=== PATIENT | female | born 1960 | race Caucasian/White ===

== ENCOUNTER → 2017-01-01 | Outpatient (CLI) | payer OTHER ==
--- NOTE | 2017-01-01 14:35 | DIAGNOSTIC IMAGING REPORT ---
NASAL BONES MIN 3 VIEWS CLINICAL HISTORY: NOSE PAIN S/P TRAUMA COMPARISON STUDY: No previous studies for comparison. FINDINGS: No acute fractures are visualized. There is no orbital emphysema. There are no air-fluid levels within the axillary sinuses. IMPRESSION: No fractures identified. Electronically signed by: Dameon Segura M.D. 01/01/2017 2:34 PM Dictated Date/Time: 01/01/2017 2:33 PM
--- NOTE | 2017-01-01 14:37 | DIAGNOSTIC IMAGING REPORT ---
PARANASAL SINUSES 4 VIEWS CLINICAL HISTORY: Facial injury. FINDINGS: 4 views of the paranasal sinuses are obtained. No prior studies are available for comparison at the time of dictation. The bony orbits are intact as imaged. The paranasal sinuses appear clear. No air-fluid levels are suspected. The mastoid air cells appear well-pneumatized. The visualized calvarium appears intact. IMPRESSION: There is no radiographic evidence of paranasal sinus disease. Electronically signed by: Darian Luna M.D. 01/01/2017 2:35 PM Dictated Date/Time: 01/01/2017 2:34 PM
== END | disposition home or self-care (01) ==
LOC: C.RAD1850 13:43
PROVIDERS: ATTEND Nurse Practitioner Adult Health
DX: J34.89 Other specified disorders of nose and nasal sinuses (principal)

== ENCOUNTER 2023-01-29 06:14 | Inpatient (IN) ==
[2023-01-29] MEDS ORDERED: SODIUM CHLORIDE 0.9% 1000ML 500 ML IV ONE (06:33)
[2023-01-29] MEDS ORDERED: dilTIAZem HCl 5 MG/ML 5 ML VIAL IV ONE (06:42)
[2023-01-29] MEDS ORDERED: dilTIAZem HCl 5 MG/ML 5 ML VIAL IV STA (06:42)
[2023-01-29] MEDS ORDERED: STAT IV Infusion **Titration per Protocol STA (06:42)
[2023-01-29] MEDS ORDERED: dilTIAZem HCL 125 MG in DEXTROSE 5% 100 ML IV SCH (06:45)
--- NOTE | 2023-01-29 06:56 | XRay Report ---
XR chest 1V portable HISTORY: 62 years-old Female Chest pain, nonspecific acute chest pain COMPARISON: 06/03/2014 TECHNIQUE: AP view of the chest FINDINGS: Cardiomediastinal and hilar silhouettes are within normal limits. No pneumothorax, pleural effusion, airspace consolidation or pulmonary edema. Bones appear grossly intact. IMPRESSION: No acute process. ACT 112: Negative or not required by law. The above report was generated using voice recognition software. It may contain grammatical, syntax o r spelling errors. Electronically signed by: Stefan Oliveira M.D. 01/29/2023 6:54 AM
--- NOTE | 2023-01-29 07:17 | Emergency Department Note ---
Impression & Plan Atrial fibrillation with rapid ventricular response, Precordial chest pain ED Provider Note NAME: AMNA HAMMER AGE: 62 SEX: F : 1960 ARRIVES VIA: Walk-In INFORMANT: [Patient] ED PROVIDER(S): [Darian Moreno MD] CHIEF COMPLAINT: Chest pain HISTORY OF PRESENT ILLNESS: The patient is a 62-year-old female who presents with about 6 hours of symptoms. The patient states that she began to feel pressure in her chest, she felt some pressure in her back, shoulders and she felt her upper arms were slightly numb. She was may be slightly short of breath. She felt her heart racing. There has been no nausea or vomiting, no fever, chills, cough or congestion. She has been in baseline health. In the past, she had an episode of a faster heart rate that really was never diagnosed as A-fib. She wore a monitor for a while but nothing was found. She is not on blood thinning agents, she is not on rate controlling medications PMHx/PSHx: See Below SOCIAL HISTORY: See Below. PHYSICAL EXAM: GENERAL: Patient is in no acute distress. HEENT: No acute trauma, normocephalic atraumatic, mucous membranes moist, no nasal congestion. NECK: No stridor, no adenopathy, no meningismus, trachea is midline. LUNGS: Clear to auscultation bilaterally, no wheeze, no rhonchi, breath sounds equal. HEART: Tachycardic and irregular, no murmurs. ABDOMEN: Soft, nontender, bowel sounds positive, no peritonitis. EXTREMITIES: No cyanosis or edema, full range of motion of all the joints without pain or difficulty, no signs for acute trauma. NEUROLOGIC: Oriented x 3, no acute motor or sensory deficits, no focal weakness. SKIN: No rash, no jaundice, no diaphoresis. DIFFERENTIAL DIAGNOSIS: A-fib or a flutter, cardiac ischemia, thyroid disorder, electrolyte imbalance, anemia, LA, viral infection, among others. EMERGENCY DEPARTMENT COURSE/PROCEDURES: Prior/Outside records reviewed: None. ECG per my interpretation: Indication was chest pain. The ECG shows a rapid A-fib with a rate of 136. There is no ST elevation, no PVCs. There is a poor R wave progression. QTc is 370. Continuous Cardiac Monitoring per my interpretation: An order was placed for continuous cardiac monitoring. The monitor shows a rate of 139 with rapid atrial fibrillation. Critical Care Note: I have personally spent 45 minutes of critical care time in the direct management of this patient. This includes bedside care, interpretation of diagnostic studies, and testing, discussion with consultants, patient, and family members, and other required patient management activities. This 45 minutes is in excess of all separately billable procedures. MEDICAL DECISION MAKING: There is no leukocytosis or concerning anemia. There is a normal platelet count. No renal failure or significant electrolyte abnormality. No concerning liver enzyme elevation. ECG shows rapid atrial fibrillation without obvious ischemia. Cardiac enzyme testing x1 is not consistent with acute cardiac injury. There is no evidence for pancreatitis. The patient appeared to be in a euthyroid state. COVID testing returned negative. Chest film per my review did not show mediastinal widening, pneumonia or pneumothorax. On exam, patient was in a rapid atrial fibrillation, she seemed to be resting comfortably on the stretcher. Patient was given a 500 cc saline bolus. She was given a bolus of IV diltiazem and placed on a diltiazem drip. With the above treatment, the patient's heart rate is now in the 80s to 90s. She remains in atrial fibrillation though. The patient is in need of a hospital stay. She will require further work-up for the new A-fib diagnosis. Hopefully, she will spontaneously convert to a sinus rhythm over the next day. I did speak with the patient and case management, the on-call hospitalist was consulted. DISPOSITION: Patient's presentation and findings warrant a hospital stay. Past Med/Surg History Medical History Bartholin's gland abscess S/p molar removal Surgical History History of appendectomy age 11 History of hand surgery Left 5th digit tendon laceration s/p repair History of tonsillectomy Family History (Updated 01/29/23 @ 08:31 by Estelle Whiting PA-C) Mother Cancer Father Heart disease Hypertension Social History Smoking Status: Never smoker Feels Safe at Home: Yes Allergies Allergies Allergy/AdvReac Type Severity Reaction Status Date / Time No Known Allergies Allergy Unverified 04/28/15 19:38 Home Meds Home Medications Medication Instructions Recorded Confirmed cyanocobalamin (B12)-cobamamide ana luisa sublingual 01/29/23 5,000 mcg-100 mcg sublingual lozenge (B12) lysine 500 mg tablet 500 mg PO DAILY 01/29/23 01/29/23 magnesium 250 mg tablet 250 mg PO DAILY 01/29/23 01/29/23 Results & Data (ED) Vital Signs Vital Signs - 24 hr 01/29/23 06:17 01/29/23 06:32 01/29/23 07:06 Temperature 37.5 C Temperature Source Temporal Artery Scan Pulse Rate 92 H 137 H Pulse Rate from SpO2 Sensor Respiratory Rate 18 Respiratory Effort / Characteristics Non-Labored Respiratory Depth Normal Blood Pressure 119/68 Blood Pressure Mean 85 Pulse Oximetry 97 Oxygen Delivery Method Room Air Room Air Sepsis Recent Fever Within 48 Hours No Sepsis New/Unexplained Change in Mental Status N/A Sepsis Action Taken by Nursing No Action Required 01/29/23 06:51 01/29/23 06:51 01/29/23 07:00 Temperature Temperature Source Pulse Rate 89 89 Pulse Rate from SpO2 Sensor 77 Respiratory Rate 21 21 Respiratory Effort / Characteristics Respiratory Depth Blood Pressure 104/63 Blood Pressure Mean 76 Pulse Oximetry 94 Oxygen Delivery Method Sepsis Recent Fever Within 48 Hours Sepsis New/Unexplained Change in Mental Status Sepsis Action Taken by Nursing 01/29/23 07:10 01/29/23 07:12 01/29/23 07:12 Temperature Temperature Source Pulse Rate 84 88 Pulse Rate from SpO2 Sensor 86 75 Respiratory Rate 21 18 Respiratory Effort / Characteristics Respiratory Depth Blood Pressure 122/52 L Blood Pressure Mean 75 Pulse Oximetry 94 94 Oxygen Delivery Method Sepsis Recent Fever Within 48 Hours Sepsis New/Unexplained Change in Mental Status Sepsis Action Taken by Nursing 01/29/23 07:20 01/29/23 07:30 01/29/23 07:30 Temperature Temperature Source Pulse Rate 100 H 94 H Pulse Rate from SpO2 Sensor 89 76 Respiratory Rate 21 18 Respiratory Effort / Characteristics Respiratory Depth Blood Pressure 120/69 Blood Pressure Mean 86 Pulse Oximetry 94 94 Oxygen Delivery Method Room Air Room Air Sepsis Recent Fever Within 48 Hours Sepsis New/Unexplained Change in Mental Status Sepsis Action Taken by Nursing 01/29/23 08:00 01/29/23 08:00 01/29/23 08:30 Temperature Temperature Source Pulse Rate 101 H Pulse Rate from SpO2 Sensor 79 Respiratory Rate 18 Respiratory Effort / Characteristics Respiratory Depth Blood Pressure 123/82 109/64 Blood Pressure Mean 95 79 Pulse Oximetry 95 Oxygen Delivery Method Room Air Sepsis Recent Fever Within 48 Hours Sepsis New/Unexplained Change in Mental Status Sepsis Action Taken by Nursing 01/29/23 08:30 01/29/23 09:00 01/29/23 09:00 Temperature Temperature Source Pulse Rate 88 98 H Pulse Rate from SpO2 Sensor 87 Respiratory Rate 21 20 Respiratory Effort / Characteristics Respiratory Depth Blood Pressure 105/70 Blood Pressure Mean 81 Pulse Oximetry 95 95 Oxygen Delivery Method Room Air Room Air Sepsis Recent Fever Within 48 Hours Sepsis New/Unexplained Change in Mental Status Sepsis Action Taken by Intermediate Medications Current Medication List: was personally reviewed by me Laboratory Data Attestation: I reviewed the patient's lab results. 01/29/23 06:37 01/29/23 Unknown Lab Results 01/29/23 01/29/23 01/29/23 Range/Units 06:37 07:17 Unknown WBC 9.41 (4.8-10.8) K/ul RBC 5.28 (4.20-5.40) M/uL Hgb 14.7 (12.0-16.0) g/dl Hct 45.2 (37.0-47.0) % MCV 85.6 (80.0-100.0) fL MCH 27.8 (25.0-34.0) pg MCHC 32.5 (32.0-36.0) g/dL RDW Std Deviation 43.4 (36.4-46.3) fL RDW Coeff of Reuben 13.8 (11.5-14.5) % Plt Count 304 (130-400) K/uL MPV 11.8 (9.4-12.4) fL Immature Gran % (Auto) 0.3 % Neut % (Auto) 65.8 % Lymph % (Auto) 23.7 % [place]barger % (Auto) 9.6 % Eos % (Auto) 0.4 % Baso % (Auto) 0.2 % Neut # (Auto) 6.19 (1.40-6.50) K/uL Lymph # (Auto) 2.23 (1.2-3.4) K/uL [place]barger # (Auto) 0.90 H (0.11-0.59) K/uL Eos # (Auto) 0.04 (0-0.50) K/uL Baso # (Auto) 0.02 (0-0.2) K/uL Immature Gran # (Auto) 0.03 (0.01-0.20) K/uL Sodium 141 (136-145) mmol/L Potassium 4.3 (3.5-5.1) mmol/L Chloride 109 H (98-107) mmol/L Carbon Dioxide 26 (21-32) mmol/L Anion Gap 6 (3-11) BUN 17 (6-23) mg/dl Creatinine 0.70 (0.6-1.2) mg/dl Est Cr Clr Drug Dosing 78.9 ml/min Est GFR ( Amer) 108.4 ml/min Est GFR (Non-Af Amer) 93.5 ml/min BUN/Creatinine Ratio 24.3 H (10-20) Glucose 126 H (70-99(Fasting)) mg/dl Calcium 9.0 (8.6-10.3) mg/dl Magnesium 2.2 (1.7-2.4) mg/dl Total Bilirubin 0.3 (0.2-1.0) mg/dl AST 35 (13-39) U/L ALT 46 (7-52) U/L Alkaline Phosphatase 99 (34-104) U/L Troponin I High Sens 9.4 (0-14) pg/ml Total Protein 7.4 (6.0-8.3) gm/dl Albumin 4.3 (3.4-5.0) gm/dl Globulin 3.1 (2.5-4.0) gm/dl Albumin/Globulin Ratio 1.4 (0.9-2) Lipase 23 (11-82) U/L TSH (0.300-4.500) uIu/ml SARS-CoV-2, RNA, NAAT NEGATIVE (NEGATIVE) 01/29/23 Range/Units Unknown WBC (4.8-10.8) K/ul RBC (4.20-5.40) M/uL Hgb (12.0-16.0) g/dl Hct (37.0-47.0) % MCV (80.0-100.0) fL MCH (25.0-34.0) pg MCHC (32.0-36.0) g/dL RDW Std Deviation (36.4-46.3) fL RDW Coeff of Reuben (11.5-14.5) % Plt Count (130-400) K/uL MPV (9.4-12.4) fL Immature Gran % (Auto) % Neut % (Auto) % Lymph % (Auto) % [place]barger % (Auto) % Eos % (Auto) % Baso % (Auto) % Neut # (Auto) (1.40-6.50) K/uL Lymph # (Auto) (1.2-3.4) K/uL Wilbarger # (Auto) (0.11-0.59) K/uL Eos # (Auto) (0-0.50) K/uL Baso # (Auto) (0-0.2) K/uL Immature Gran # (Auto) (0.01-0.20) K/uL Sodium (136-145) mmol/L Potassium (3.5-5.1) mmol/L Chloride (98-107) mmol/L Carbon Dioxide (21-32) mmol/L Anion Gap (3-11) BUN (6-23) mg/dl Creatinine (0.6-1.2) mg/dl Est Cr Clr Drug Dosing ml/min Est GFR ( Amer) ml/min Est GFR (Non-Af Amer) ml/min BUN/Creatinine Ratio (10-20) Glucose (70-99(Fasting)) mg/dl Calcium (8.6-10.3) mg/dl Magnesium (1.7-2.4) mg/dl Total Bilirubin (0.2-1.0) mg/dl AST (13-39) U/L ALT (7-52) U/L Alkaline Phosphatase (34-104) U/L Troponin I High Sens (0-14) pg/ml Total Protein (6.0-8.3) gm/dl Albumin (3.4-5.0) gm/dl Globulin (2.5-4.0) gm/dl Albumin/Globulin Ratio (0.9-2) Lipase (11-82) U/L TSH 3.520 (0.300-4.500) uIu/ml SARS-CoV-2, RNA, NAAT (NEGATIVE) Administered Medications Diltiazem HCl 125 mg/ Dextrose 125 mls @ 5 mls/hr IV .Q24H [facility]; Protocol Stop: 02/28/23 06:44 Last Admin: 01/29/23 07:05 Dose: 5 mg/hr, 5 mls/hr Documented By: FRANCISCA Co-signed By: ASHLEIGH Discontinued Medications Diltiazem HCl (Diltiazem Hcl 5 Mg/Ml 5 Ml Vial) Confirm Administered Dose 25 mg IV .STK-MED ONE Stop: 01/29/23 06:43 Last Increment: 01/29/23 06:43 Dose: 15 mg Documented By: DEDE Co-signed By: DARIO Diltiazem HCl (Diltiazem Hcl 5 Mg/Ml 5 Ml Vial) 15 mg IV NOW STA Stop: 01/29/23 06:43 Last Admin: 01/29/23 06:50 Dose: Not Given Documented By: DEDE Sodium Chloride (Nss 1000ml) 500 mls @ 999 mls/hr IV .Q31M ONE Stop: 01/29/23 07:03 Last Infusion: 01/29/23 07:21 Dose: 0 mls/hr Documented By: Admin: 01/29/23 06:50 Dose: 999 mls/hr Documented By: DEDE Miscellaneous (Stat Iv Infusion Titration Per Protocol) 1 each N/A NOW STA Stop: 01/29/23 06:43 Last Admin: 01/29/23 07:22 Dose: Not Given Documented By: FRANCISCA Imaging Data Radiologist's Impression: Chest X-Ray 01/29/23 06:16 XR chest 1V portable HISTORY: 62 years-old Female Chest pain, nonspecific acute chest pain COMPARISON: 06/03/2014 TECHNIQUE: AP view of the chest FINDINGS: Cardiomediastinal and hilar silhouettes are within normal limits. No pneumothorax, pleural effusion, airspace consolidation or pulmonary edema. Bones appear grossly intact. IMPRESSION: No acute process. ACT 112: Negative or not required by law. The above report was generated using voice recognition software. It may contain grammatical, syntax or spelling errors. Electronically signed by: Stefan Oliveira M.D. 01/29/2023 6:54 AM Discharge Plan Visit Data Chief Complaint: Chest Pain Stated Complaint: CHEST PAIN,PAIN IN BACK,SHOULDER,RACING HEART ED Provider: Darian Moreno Discharge Problem: Atrial fibrillation with rapid ventricular response, Precordial chest pain Patient Disposition: Admitted As Inpatient Condition: Good Forms Stand Alone Forms: My [facility] [place] [employer] Prescriptions Prescriptions: No Action magnesium 250 mg Tablet 250 mg PO DAILY lysine 500 mg Tablet 500 mg PO DAILY B12 5,000-100 mcg Lozenge SUBLINGUAL Referrals Referrals: PCP,NO [Primary Care Provider] -
[2023-01-29 07:19] LABS: Basophils # (auto) 0.02 K/uL (0-0.2); Basophils % (auto) 0.2 %; Eosinophils # (auto) 0.04 K/uL (0-0.50); Eosinophils % (auto) 0.4 %; Hematocrit (blood only) 45.2 % (37.0-47.0); Hemoglobin 14.7 g/dl (12.0-16.0); Immature Granulocytes # (auto) 0.03 K/uL (0.01-0.20); Immature Granulocytes % (auto) 0.3 %; Lymphocytes # (auto) 2.23 K/uL (1.2-3.4); Lymphocytes % (auto) 23.7 %; Mean Corpuscular Hemoglobin 27.8 pg (25.0-34.0); Mean Corpuscular Hgb Conc 32.5 g/dL (32.0-36.0); Mean Corpuscular Volume 85.6 fL (80.0-100.0); Mean Platelet Volume 11.8 fL (9.4-12.4); Monocytes % (auto) 9.6 %; Neutrophils # (auto) 6.19 K/uL (1.40-6.50); Neutrophils % (auto) 65.8 %; Platelet Count 304 K/uL (130-400); RDW Coefficient of Variation 13.8 % (11.5-14.5); RDW Standard Deviation 43.4 fL (36.4-46.3); Red Blood Count 5.28 M/uL (4.20-5.40); White Blood Count 9.41 K/ul (4.8-10.8)
[2023-01-29 07:34] LABS: Albumin Globulin Ratio 1.4 (0.9-2); Albumin Level 4.3 gm/dl (3.4-5.0); BUN Creatinine Ratio 24.3 (10-20); Bilirubin,Total 0.3 mg/dl (0.2-1.0); Creatinine Clr Calc Pharmacy 78.9 ml/min; Est GFR (African American) 108.4 ml/min; Est GFR (Non-African American) 93.5 ml/min; Globulin 3.1 gm/dl (2.5-4.0); Magnesium 2.2 mg/dl (1.7-2.4); Potassium 4.3 mmol/L (3.5-5.1); Total Protein 7.4 gm/dl (6.0-8.3)
[2023-01-29 07:39] LABS: Troponin I High Sensitivity 9.4 pg/ml (0-14)
--- NOTE | 2023-01-29 08:37 | History & Physical Report ---
Date of Service January 29, 2023 Assessment & Plan (1) New onset a-fib: (2) Palpitations: Plan: - Admit to tele - Trend cardiac biomarkers, initial set was negative - EKG reviewed as above showing Afib with RVR, suspect this has been ongoing or some time but that this was an episode which did not spontaneously convert. 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 as per her HPI - [id number]= 1, patient will not need anticoagulation unless condition changes or cards recommends such - TSH normal, denies alcohol use - Check lipids and A1C with am labs - Strong family association with hx of afib DVT ppx: - teds, scds, heparin subq CODE: Full code Dispo: From home, likely to remain in the hospital x 1-2 days A total of 65 minutes were spent with greater than 50% of that time face to face with the patient, personally reviewing all current laboratories, imaging studies, past medication reconciliation, outpatient chart review, and discussion with specialists to collaborate care for the patient with attending. Please see attending documentation for corrections and/or additions. History of Present Illness Chief Complaint: Chest pressure, palpitations Primary Care Provider: NO PCP This is a 62-year-old female with PMHx of seasonal allergies, ocular migraine who presents to the hospital with acute onset of chest pressure, bilateral arm pressure, palpitations and slight sensation of shortness of breath which woke her at 12:30 AM. Pt notes this pounding in her chest sensation did not away after a few hours. She reports having fleeting moments of irregular heart beat about 10 years ago where she underwent evaluation with a Holter monitor but does not recall anything came out of it. She has of other episodes where similar sensation has lasted a few moments and then goes away. She notes she was drinking plenty of water yesterday and throughout the night, she last ate around 7:30 pm yesterday. As far as medications go, she is only on 3 supplements: Magnesium, lysine and B12 which she takes whenever she remembers them. She reports a strong family history of atrial fibrillation, reporting that her father and 5 out of 6 siblings now have been diagnosed with afib and some have undergone ablations for such, and one of her brothers now has a pacemaker. All of her mothers brothers were diagnosed with afib. 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 Denies alcohol use or smoking. She lives at home with her , Nilo, who is present at bedside. Allergies Allergy/AdvReac Type Severity Reaction Status Date / Time No Known Allergies Allergy Unverified 04/28/15 19:38 Home Medications Medication Instructions Recorded Confirmed Type cyanocobalamin (vitamin B-12) 1 tab PO DAILY 01/29/23 01/29/23 History lysine 500 mg tablet 500 mg PO DAILY 01/29/23 01/29/23 History magnesium 250 mg tablet 250 mg PO DAILY 01/29/23 01/29/23 History Past Med/Surg History Medical History Bartholin's gland abscess S/p molar removal Surgical History History of appendectomy age 11 History of hand surgery Left 5th digit tendon laceration s/p repair History of tonsillectomy Family History (Updated 01/29/23 @ 08:31 by Estelle Whiting PA-C) Mother Cancer Father Heart disease Hypertension Social History Smoking Status: Never smoker Hx Alcohol Use: No Hx Substance Use: No Preferred Language: Nepali Freight Clerk Required: No Beliefs That Will Affect Care: None Current Living Situation: Spouse Other Information That Helps Us Care for You: No Feels Safe at Home: Yes Safety Concerns: Feels Safe At This Time Assistive Devices: Glasses Review of Systems Review of Systems: Constitutional: No fever, sweats or chills Eyes: No diplopia, no worsening or blurred vision ENT: normal hearing, no trouble swallowing Respiratory: No cough, sputum, dyspnea at rest or on exertion Cardiovascular: As per HPI Abdomen: No pain, nausea, vomiting, diarrhea or constipation Musculoskeletal: No joint pain, calf pain, swelling Neurologic: No weakness, numbness/tingling, or balance problems Psychiatric: No anxiety or depression Skin: No rash or itch Physical Exam Physical Exam: General: awake, alert, no apparent distress Head: Normocephalic, atraumatic ENT: PERRL, EOMI, no pharyngeal exudate, mucous membranes moist Chest: Clear to auscultation, on room air, no adventitious breath sounds Cardiac: Irregularly irregular, HR peaks into the 150s with sitting up in bed, no JVD, normal peripheral pulses, good capillary refill Abdominal: NABS x 4 quadrants, soft, nondistended, nontender to palpation, no rebound or guarding Extremities: Normal inspection, no peripheral edema or erythema, calfs nontender to palpation Psych: Normal mood and affect Neuro: AAO x 3, strength intact bilaterally and rated 5/5, no motor deficits, speech is clear, no peripheral sensory deficits Results & Data Results & Data Vital Signs (Past 12 Hours) Vital Signs Temp Pulse Resp BP Pulse Ox O2 Del Method 01/29/23 08:00 101 H 18 95 Room Air 01/29/23 08:00 123/82 01/29/23 07:30 94 H 18 94 Room Air 01/29/23 07:30 120/69 01/29/23 07:20 100 H 21 94 Room Air 01/29/23 07:12 122/52 L 01/29/23 07:12 88 18 94 01/29/23 07:10 84 21 94 01/29/23 07:00 89 21 94 01/29/23 06:51 89 21 01/29/23 06:51 104/63 01/29/23 07:06 Room Air 01/29/23 06:32 137 H 01/29/23 06:17 37.5 C 92 H 18 119/68 97 Room Air Laboratory Results 01/29/23 01/29/23 01/29/23 Unknown Unknown 07:17 WBC RBC Hgb Hct MCV MCH MCHC RDW Std Deviation RDW Coeff of Reuben Plt Count MPV Immature Gran % (Auto) Neut % (Auto) Lymph % (Auto) Jewell % (Auto) Eos % (Auto) Baso % (Auto) Neut # (Auto) Lymph # (Auto) Jewell # (Auto) Eos # (Auto) Baso # (Auto) Immature Gran # (Auto) Sodium 141 Potassium 4.3 Chloride 109 H Carbon Dioxide 26 Anion Gap 6 BUN 17 Creatinine 0.70 Est Cr Clr Drug Dosing 78.9 Est GFR ( Amer) 108.4 Est GFR (Non-Af Amer) 93.5 BUN/Creatinine Ratio 24.3 H Glucose 126 H Calcium 9.0 Magnesium 2.2 Total Bilirubin 0.3 AST 35 ALT 46 Alkaline Phosphatase 99 Troponin I High Sens 9.4 Total Protein 7.4 Albumin 4.3 Globulin 3.1 Albumin/Globulin Ratio 1.4 Lipase 23 TSH 3.520 SARS-CoV-2, RNA, NAAT NEGATIVE 01/29/23 06:37 WBC 9.41 RBC 5.28 Hgb 14.7 Hct 45.2 MCV 85.6 MCH 27.8 MCHC 32.5 RDW Std Deviation 43.4 RDW Coeff of Reuben 13.8 Plt Count 304 MPV 11.8 Immature Gran % (Auto) 0.3 Neut % (Auto) 65.8 Lymph % (Auto) 23.7 Jewell % (Auto) 9.6 Eos % (Auto) 0.4 Baso % (Auto) 0.2 Neut # (Auto) 6.19 Lymph # (Auto) 2.23 Jewell # (Auto) 0.90 H Eos # (Auto) 0.04 Baso # (Auto) 0.02 Immature Gran # (Auto) 0.03 Sodium Potassium Chloride Carbon Dioxide Anion Gap BUN Creatinine Est Cr Clr Drug Dosing Est GFR ( Amer) Est GFR (Non-Af Amer) BUN/Creatinine Ratio Glucose Calcium Magnesium Total Bilirubin AST ALT Alkaline Phosphatase Troponin I High Sens Total Protein Albumin Globulin Albumin/Globulin Ratio Lipase TSH SARS-CoV-2, RNA, NAAT Diagnostic Findings Chest X-Ray 01/29/23 06:16 XR chest 1V portable HISTORY: 62 years-old Female Chest pain, nonspecific acute chest pain COMPARISON: 06/03/2014 TECHNIQUE: AP view of the chest FINDINGS: Cardiomediastinal and hilar silhouettes are within normal limits. No pneumothorax, pleural effusion, airspace consolidation or pulmonary edema. Bones appear grossly intact. IMPRESSION: No acute process. ACT 112: Negative or not required by law. The above report was generated using voice recognition software. It may contain grammatical, syntax or spelling errors. Electronically signed by: Stefan Oliveira M.D. 01/29/2023 6:54 AM ECG Additional Comments: Reviewed showing atrial fib with RVR with heart rate in the 130s on review of EKG at 06 27 today. Previously EKG in NSR. Code Status & VTE Plan Code Status Full code-discussed with the patient and her at bedside Supervising Physician Co-Signing Physician Notes Patient seen and examined independently. Discussed with above provider. 62-year-old female with no significant past medical history presents to the hospital with palpitation and chest discomfort since last night. On presentation, she was found to have A-fib with RVR. In the ED, patient was started on Cardizem bolus and Cardizem drip. Her ventricular rate is well controlled on Cardizem drip at 10 mg/h. TSH WNL. No recent alcohol use. Echocardiogram ordered. Admit to telemetry. [id number]= 1; no anticoagulation for now. Appreciate cardiology input.
[2023-01-29] MEDS ORDERED: ONDANSETRON INJ 2 MG/ML 2 ML VIAL IV PRN (12:11)
[2023-01-29] MEDS ORDERED: ACETAMINOPHEN 325 MG TAB PO PRN (12:11)
--- NOTE | 2023-01-29 14:49 | Electrocardiogram Report ---
Test Reason : Blood Pressure : / mmHG Vent. Rate : 136 BPM Atrial Rate : 182 BPM P-R Int : 000 ms QRS Dur : 066 ms QT Int : 246 ms P-R-T Axes : 000 012 027 degrees QTc Int : 370 ms Atrial fibrillation with rapid ventricular response Abnormal ECG When compared with ECG of 27-AUG-2018 10:33, Atrial fibrillation has replaced Sinus rhythm Vent. rate has increased BY 68 BPM Confirmed by Joshua Ballesteros ([id number]) on 01/29/2023 2:49:26 PM Referred By: REFERRED SELF Confirmed By:Joshua Ballesteros
[2023-01-29] MEDS ORDERED: Heparin IV Adult Wt-Based Standard WITH Bolus Protocol IV SCH (15:39)
--- NOTE | 2023-01-29 15:44 | Cardiology Consultation ---
Date of Consultation January 29, 2023 Assessment & Plan (1) Atrial fibrillation with rapid ventricular response: (2) Precordial chest pain: Plan I explained the pathophysiology along with treatment options with the patient and her at the bedside They are counseled that I believe the most prudent course of action at this time would be to anticoagulate with weight-based IV heparin Ultimately, she will need Eliquis upon discharge For further rate control I will start her on the metoprolol tartrate 12.5 mg p.o. every 6 hours and her diltiazem drip can be titrated to off. Her symptoms will then be reevaluated in the a.m. and decision on rate versus rhythm control can be made at that time. Both the patient and her state that they understand and agree with the above plan History of Present Illness Reason for Consultation: Atrial fibrillation with rapid ventricular response Requesting Physician: [facility] hospitalist group Attending Physician: Kleber Hermosillo MD History of Present Illness It was my pleasure to see the patient in cardiac consultation today January 29, 2023. She is a very pleasant 62-year-old woman without significant past medical history. She presented to [facility] on 01/29/2023 with complaints of palpitations and chest discomfort. She states that she was in her normal state of health when she went to bed last evening but abruptly awoke at 12:30 AM with a sensation of her heart racing. This was also associated with a chest heaviness that radiated across her precordium up into her bilateral shoulders and down both arms. She was also short of breath at this time. Upon arrival emergency department she was found to be in atrial fibrillation with rapid ventricular response. She was started on a Cardizem drip but no anticoagulation? Currently she states that she feels better but still feels a little off and not quite back to her baseline. Upon further questioning she states that she had previous episodes of palpitations in the past but none that have lasted as long as this nor has she ever had associated chest discomfort with it before. Allergies Allergy/AdvReac Type Severity Reaction Status Date / Time No Known Allergies Allergy Unverified 04/28/15 19:38 Home Medications Medication Instructions Recorded Confirmed Type cyanocobalamin (vitamin B-12) 1 tab PO DAILY 01/29/23 01/29/23 History lysine 500 mg tablet 500 mg PO DAILY 01/29/23 01/29/23 History magnesium 250 mg tablet 250 mg PO DAILY 01/29/23 01/29/23 History Patient History Medical History Bartholin's gland abscess S/p molar removal Surgical History History of appendectomy age 11 History of hand surgery Left 5th digit tendon laceration s/p repair History of tonsillectomy Family History Mother Cancer Father Heart disease Hypertension Social History Smoking Status: Never smoker Hx Alcohol Use: No Hx Substance Use: No Preferred Language: Luxembourgish Hearing Aid Assistant Required: No Beliefs That Will Affect Care: None Current Living Situation: Spouse Other Information That Helps Us Care for You: No Feels Safe at Home: Yes Safety Concerns: Feels Safe At This Time Assistive Devices: Glasses Review of Systems Review of Systems: All systems reviewed & are unremarkable except as noted in HPI & below Physical Exam Physical Exam: General: Awake, alert and oriented x 3. No acute distress. HEENT: Normocephalic, atraumatic. Pupils equal, round and reactive to light and accommodation. Extraocular muscles are intact. Anicteric sclera. Moist mucous membranes. Neck: No JVD. No bruit. Cardiovascular: irregularly irregular, unable to appreciate murmur, rub or gallop. Pulmonary: Clear to auscultation bilaterally. No rales, rhonchi, or wheezing. Abdomen: Bowel sounds x 4, soft. No rebound, guarding or tenderness. No organomegaly. Extremities: No clubbing, cyanosis or edema. +2 pedal pulses bilaterally. Skin: Warm and dry. Results & Data Vital Signs (Past 12 Hours) Vital Signs Temp Pulse Pulse Resp BP BP Pulse Ox 01/29/23 13:59 01/29/23 13:58 84 01/29/23 12:13 36.8 C 79 18 96/65 L 97 01/29/23 11:51 01/29/23 11:30 80 23 94 01/29/23 11:30 110/73 01/29/23 11:00 83 19 95 01/29/23 11:00 103/64 01/29/23 10:30 81 20 94 01/29/23 10:30 134/60 01/29/23 10:00 96 H 18 01/29/23 10:00 107/66 01/29/23 09:30 88 18 95 01/29/23 09:30 109/68 01/29/23 09:00 98 H 20 95 01/29/23 09:00 105/70 01/29/23 08:30 88 21 95 01/29/23 08:30 109/64 01/29/23 08:00 101 H 18 95 01/29/23 08:00 123/82 01/29/23 07:30 94 H 18 94 01/29/23 07:30 120/69 01/29/23 07:20 100 H 21 94 01/29/23 07:12 122/52 L 01/29/23 07:12 88 18 94 01/29/23 07:10 84 21 94 01/29/23 07:00 89 21 94 01/29/23 06:51 89 21 01/29/23 06:51 104/63 01/29/23 07:06 01/29/23 06:32 137 H 01/29/23 06:17 37.5 C 92 H 18 119/68 97 O2 Del Method 01/29/23 13:59 Room Air 01/29/23 13:58 01/29/23 12:13 Room Air 01/29/23 11:51 Room Air 01/29/23 11:30 Room Air 01/29/23 11:30 01/29/23 11:00 Room Air 01/29/23 11:00 01/29/23 10:30 Room Air 01/29/23 10:30 01/29/23 10:00 01/29/23 10:00 01/29/23 09:30 Room Air 01/29/23 09:30 01/29/23 09:00 Room Air 01/29/23 09:00 01/29/23 08:30 Room Air 01/29/23 08:30 01/29/23 08:00 Room Air 01/29/23 08:00 01/29/23 07:30 Room Air 01/29/23 07:30 01/29/23 07:20 Room Air 01/29/23 07:12 01/29/23 07:12 01/29/23 07:10 01/29/23 07:00 01/29/23 06:51 01/29/23 06:51 01/29/23 07:06 Room Air 01/29/23 06:32 01/29/23 06:17 Room Air
[2023-01-29] MEDS: Heparin Adult STANDARD Wt-Based Dextrose 5% 25,000 units/500 mL IV SCH (16:25)
[2023-01-29] MEDS ORDERED: HEPARIN IV BOLUS 5,000 UNITS in SYRINGE 0 ML IV ONE (16:30)
[2023-01-29 17:01] LABS: Basophils # (auto) 0.02 K/uL (0-0.2); Basophils % (auto) 0.3 %; Eosinophils # (auto) 0.04 K/uL (0-0.50); Eosinophils % (auto) 0.5 %; Hematocrit (blood only) 41.6 % (37.0-47.0); Hemoglobin 13.6 g/dl (12.0-16.0); Immature Granulocytes # (auto) 0.02 K/uL (0.01-0.20); Immature Granulocytes % (auto) 0.3 %; Lymphocytes # (auto) 2.03 K/uL (1.2-3.4); Lymphocytes % (auto) 25.7 %; Mean Corpuscular Hemoglobin 28.2 pg (25.0-34.0); Mean Corpuscular Hgb Conc 32.7 g/dL (32.0-36.0); Mean Corpuscular Volume 86.3 fL (80.0-100.0); Mean Platelet Volume 11.7 fL (9.4-12.4); Monocytes # (auto) 0.79 K/uL (0.11-0.59); Neutrophils % (auto) 63.2 %; Platelet Count 276 K/uL (130-400); RDW Coefficient of Variation 13.8 % (11.5-14.5); RDW Standard Deviation 43.8 fL (36.4-46.3); Red Blood Count 4.82 M/uL (4.20-5.40)
[2023-01-29 17:15] LABS: Partial Thromboplastin Time 27.6 Seconds (21.0-31.0); Prothrombin Time 10.4 Seconds (9.0-12.0)
[2023-01-29] MEDS ORDERED: HEPARIN SOD 5,000 UNIT/0.5 ML VIAL SQ SCH (21:00)
[2023-01-29] MEDS: METOPROLOL TARTRATE 25 MG TAB PO SCH (21:05)
[2023-01-30 00:08] LABS: Partial Thromboplastin Ratio 1.7
[2023-01-30 00:12] LABS: Partial Thromboplastin Time 47.8 Seconds (21.0-31.0)
[2023-01-30] MEDS: METOPROLOL TARTRATE 25 MG TAB PO SCH ×3 (01:56→20:24)
[2023-01-30 06:32] LABS: Hematocrit (blood only) 43.3 % (37.0-47.0); Hemoglobin 14.2 g/dl (12.0-16.0); Mean Corpuscular Hemoglobin 28.2 pg (25.0-34.0); Mean Corpuscular Hgb Conc 32.8 g/dL (32.0-36.0); Mean Corpuscular Volume 85.9 fL (80.0-100.0); Platelet Count 246 K/uL (130-400); RDW Coefficient of Variation 13.7 % (11.5-14.5); RDW Standard Deviation 42.6 fL (36.4-46.3); Red Blood Count 5.04 M/uL (4.20-5.40); White Blood Count 7.43 K/ul (4.8-10.8)
[2023-01-30 06:55] LABS: BUN Creatinine Ratio 21.3 (10-20); Calcium 8.8 mg/dl (8.6-10.3); Est GFR (African American) 99.7 ml/min; Magnesium 2.1 mg/dl (1.7-2.4); Potassium 4.2 mmol/L (3.5-5.1)
[2023-01-30 07:53] LABS: Partial Thromboplastin Ratio 1.7
[2023-01-30 07:55] LABS: Partial Thromboplastin Time 47.7 Seconds (21.0-31.0)
[2023-01-30] MEDS ORDERED: METOPROLOL TARTRATE 1 MG/ML VIAL IV STA (08:55)
[2023-01-30] MEDS ORDERED: METOPROLOL TARTRATE 1 MG/ML VIAL IV ONE (08:56)
[2023-01-30] MEDS ORDERED: STAT IV Infusion **Titration per Protocol STA (09:42)
[2023-01-30] MEDS ORDERED: dilTIAZem HCl 5 MG/ML 5 ML VIAL IV STA (09:42)
--- NOTE | 2023-01-30 09:49 | Cardiology Progress Note ---
Date of Service January 30, 2023 Assessment & Plan (1) Atrial fibrillation with rapid ventricular response: (2) Precordial chest pain: Plan The diltiazem drip needs to be restarted for heart rate control. I reviewed the telemetry and she never converted to sinus rhythm so I am uncertain as to why it was stopped. I have increased her metoprolol to 25 mg twice daily. Would continue the IV heparin for now. Admission and Anticipated Discharge Date Admission Date: January 29, 2023 Subjective The patient was admitted with atrial fibrillation and RVR. She was on a diltiazem drip and for an uncertain reason it was discontinued last night and the patient has high heart rates again this morning. No chest pain or shortness of breath. Feels a little lightheaded. Review of Systems Review of Systems: Review of Systems: See HPI for pertinent positives. All other 10 point review of systems are negative. Physical Exam Physical Exam: General: no acute distress and stated age Head: normocephalic, no masses, lesions, tenderness or abnormalities Eyes: conjunctiva are pink and non-injected, sclera clear Neck: supple, no adenopathy, no bruits, normal jugular venous pulse, no hepatojugular reflux Chest: normal shape and normal respiratory effort Lungs: clear to auscultation and percussion Cardiac Exam: - irregular rate & rhythm, no murmurs gallops or rubs - normal S1, normal S2 Pulses: 2(+) throughout Abdomen: abdomen soft, non-tender, no abnormal masses and no hepatosplenomegaly Musculoskeletal: no gait disturbance, no joint inflammation, no deforming arthritis Extremities: no edema and no cyanosis Neuro: grossly normal exam Results & Data Vital Signs (Past 12 Hours) Vital Signs Temp Pulse Pulse Resp BP BP Pulse Ox 01/30/23 08:58 147 H 140/65 01/30/23 08:55 147 H 140/65 01/30/23 08:28 36.8 C 76 16 114/83 96 01/29/23 22:03 93 H 01/30/23 03:49 36.5 C 70 16 97/63 L 97 01/29/23 23:19 37.0 C 70 18 105/69 93 O2 Del Method 01/30/23 08:58 01/30/23 08:55 01/30/23 08:28 Room Air 01/29/23 22:03 01/30/23 03:49 Room Air 01/29/23 23:19 Room Air Laboratory Results Laboratory Results - last 24 hr 01/29/23 01/29/23 01/29/23 09:27 16:23 16:23 WBC 7.90 RBC 4.82 Hgb 13.6 Hct 41.6 MCV 86.3 MCH 28.2 MCHC 32.7 RDW Std Deviation 43.8 RDW Coeff of Reuben 13.8 Plt Count 276 MPV 11.7 Immature Gran % (Auto) 0.3 Neut % (Auto) 63.2 Lymph % (Auto) 25.7 [place] % (Auto) 10.0 Eos % (Auto) 0.5 Baso % (Auto) 0.3 Neut # (Auto) 5.00 Lymph # (Auto) 2.03 [place] # (Auto) 0.79 H Eos # (Auto) 0.04 Baso # (Auto) 0.02 Immature Gran # (Auto) 0.02 PT 10.4 INR 1.0 APTT 27.6 PTT Ratio 1.0 Sodium Potassium Chloride Carbon Dioxide Anion Gap BUN Creatinine Est Cr Clr Drug Dosing Est GFR ( Amer) Est GFR (Non-Af Amer) BUN/Creatinine Ratio Glucose Estimat Average Glucose Hemoglobin A1c Calcium Phosphorus Magnesium Troponin I High Sens 13.3 Triglycerides Cholesterol LDL Cholesterol, Calc VLDL Cholesterol, Calc HDL Cholesterol Cholesterol/HDL Ratio 01/29/23 01/30/23 01/30/23 23:07 05:43 05:43 WBC 7.43 RBC 5.04 Hgb 14.2 Hct 43.3 MCV 85.9 MCH 28.2 MCHC 32.8 RDW Std Deviation 42.6 RDW Coeff of Reuben 13.7 Plt Count 246 MPV 12.0 Immature Gran % (Auto) Neut % (Auto) Lymph % (Auto) [place] % (Auto) Eos % (Auto) Baso % (Auto) Neut # (Auto) Lymph # (Auto) [place] # (Auto) Eos # (Auto) Baso # (Auto) Immature Gran # (Auto) PT INR APTT 47.8 H* PTT Ratio 1.7 Sodium 142 Potassium 4.2 Chloride 110 H Carbon Dioxide 26 Anion Gap 6 BUN 16 Creatinine 0.75 Est Cr Clr Drug Dosing 73.0 Est GFR ( Amer) 99.7 Est GFR (Non-Af Amer) 86.0 BUN/Creatinine Ratio 21.3 H Glucose 111 H Estimat Average Glucose Hemoglobin A1c Calcium 8.8 Phosphorus 4.0 Magnesium 2.1 Troponin I High Sens Triglycerides 100 Cholesterol 165 LDL Cholesterol, Calc 104 VLDL Cholesterol, Calc 20 HDL Cholesterol 41 Cholesterol/HDL Ratio 4.0 01/30/23 01/30/23 05:43 05:43 WBC RBC Hgb Hct MCV MCH MCHC RDW Std Deviation RDW Coeff of Reuben Plt Count MPV Immature Gran % (Auto) Neut % (Auto) Lymph % (Auto) [place] % (Auto) Eos % (Auto) Baso % (Auto) Neut # (Auto) Lymph # (Auto) [place] # (Auto) Eos # (Auto) Baso # (Auto) Immature Gran # (Auto) PT INR APTT 47.7 H* PTT Ratio 1.7 Sodium Potassium Chloride Carbon Dioxide Anion Gap BUN Creatinine Est Cr Clr Drug Dosing Est GFR ( Amer) Est GFR (Non-Af Amer) BUN/Creatinine Ratio Glucose Estimat Average Glucose Pending Hemoglobin A1c Pending Calcium Phosphorus Magnesium Troponin I High Sens Triglycerides Cholesterol LDL Cholesterol, Calc VLDL Cholesterol, Calc HDL Cholesterol Cholesterol/HDL Ratio Medications Administered Current Inpatient Medications Acetaminophen (Acetaminophen 325 Mg Tab) 650 mg PO Q4H PRN PRN Reason: Moderate Pain (Scale 4, 5, 6) Stop: 02/28/23 12:10 Heparin Sodium/Dextrose (Heparin Sodium/Dextrose) 25,000 units in 500 mls @ 21 mls/hr IV .[id number] [facility]; Protocol Stop: 02/28/23 15:59 Last Titration: 01/30/23 08:29 Dose: 1,050 units/hr, 21 mls/hr Diltiazem HCl 125 mg/ Dextrose 125 mls @ 5 mls/hr IV .Q24H [facility]; Protocol Stop: 03/01/23 09:59 Metoprolol Tartrate (Metoprolol Tartrate 25 Mg Tab) 25 mg PO BID [facility] Stop: 03/01/23 20:59 Ondansetron HCl (Ondansetron Inj 2 Mg/Ml 2 Ml Vial) 4 mg IV Q4H PRN PRN Reason: Nausea And Vomiting Stop: 02/28/23 12:10
[2023-01-30] MEDS: dilTIAZem HCL 125 MG in DEXTROSE 5% 100 ML IV SCH (10:00)
[2023-01-30 10:22] LABS: Estimated Average Glucose 123 mg/dl; Hemoglobin A1C 5.9 % (4.5-5.6)
--- NOTE | 2023-01-30 12:20 | Hospitalist Progress Note ---
Date of Service January 30, 2023 Assessment & Plan (1) New onset a-fib: (2) Palpitations: Plan: Patient is a 62-year-old female with no significant past medical history who presented to the ED with palpitation and chest discomfort On presentation to the ED, found to have atrial fibrillation with RVR; ventricular rate in 140s to 150s. Started on Cardizem drip. Admitted to telemetry floor EKG personally reviewed; atrial fibrillation with ventricular rate of 136. Echocardiogram shows normal LV chamber with mild concentric LVH; EF of 60 to 65%; no significant valvular abnormality. Discussed with cardiology; Dr. Somersmended patient to be placed back on C ardizem drip. He also recommended to increase metoprolol to 25 mg twice daily. Patient is currently on heparin drip; will prescribe Eliquis as outpatient. Labs personally reviewed; A1c of 5.9%; prediabetic. [id number], LDL of 104. TSH3.5. DVT ppx: -Heparin drip CODE: Full code Dispo: Continues to be hospitalized for management of to A-fib with RVR (3) Prediabetes: Admission and Anticipated Discharge Date Admission Date: January 29, 2023 Subjective Overnight, her Cardizem drip was weaned off. She continued to have atrial fibrillation with ventricular rate of 140-1 50s. Cardizem drip was restarted today. She continues to be on heparin drip. Review of Systems Review of Systems: All systems reviewed & are unremarkable except as noted in Subjective Physical Exam Physical Exam: General: awake, alert, no apparent distress Head: Normocephalic, atraumatic ENT: PERRL, EOMI, no pharyngeal exudate, mucous membranes moist Chest: Clear to auscultation, on room air, no adventitious breath sounds Cardiac: Irregularly irregular; no murmur Abdominal: NABS x 4 quadrants, soft, nondistended, nontender to palpation, no rebound or guarding Extremities: Normal inspection, no peripheral edema or erythema, calfs nontender to palpation Psych: Normal mood and affect Neuro: AAO x 3, strength intact bilaterally and rated 5/5, no motor deficits, speech is clear, no peripheral sensory deficits Results & Data Results & Data Vital Signs (Past 12 Hours) Vital Signs Temp Pulse Pulse Resp BP BP Pulse Ox 01/30/23 11:13 86 01/30/23 10:09 108 H 18 107/58 L 01/30/23 08:58 147 H 140/65 01/30/23 08:55 147 H 140/65 01/30/23 08:28 36.8 C 76 16 114/83 96 01/30/23 03:49 36.5 C 70 16 97/63 L 97 O2 Del Method 01/30/23 11:13 01/30/23 10:09 01/30/23 08:58 01/30/23 08:55 01/30/23 08:28 Room Air 01/30/23 03:49 Room Air Laboratory Results Laboratory Results WBC 7.43 K/ul (4.8-10.8) 01/30/23 05:43 RBC 5.04 M/uL (4.20-5.40) 01/30/23 05:43 Hgb 14.2 g/dl (12.0-16.0) 01/30/23 05:43 Hct 43.3 % (37.0-47.0) 01/30/23 05:43 MCV 85.9 fL (80.0-100.0) 01/30/23 05:43 MCH 28.2 pg (25.0-34.0) 01/30/23 05:43 MCHC 32.8 g/dL (32.0-36.0) 01/30/23 05:43 RDW Std Deviation 42.6 fL (36.4-46.3) 01/30/23 05:43 RDW Coeff of Rueben 13.7 % (11.5-14.5) 01/30/23 05:43 Plt Count 246 K/uL (130-400) 01/30/23 05:43 MPV 12.0 fL (9.4-12.4) 01/30/23 05:43 Immature Gran % (Auto) 0.3 % 01/29/23 16:23 Neut % (Auto) 63.2 % 01/29/23 16:23 Lymph % (Auto) 25.7 % 01/29/23 16:23 George % (Auto) 10.0 % 01/29/23 16:23 Eos % (Auto) 0.5 % 01/29/23 16:23 Baso % (Auto) 0.3 % 01/29/23 16:23 Neut # (Auto) 5.00 K/uL (1.40-6.50) 01/29/23 16:23 Lymph # (Auto) 2.03 K/uL (1.2-3.4) 01/29/23 16:23 George # (Auto) 0.79 K/uL (0.11-0.59) H 01/29/23 16:23 Eos # (Auto) 0.04 K/uL (0-0.50) 01/29/23 16: Baso # (Auto) 0.02 K/uL (0-0.2) 01/29/23 16:23 Immature Gran # (Auto) 0.02 K/uL (0.01-0.20) 01/29/23 16: PT 10.4 Seconds (9.0-12.0) 01/29/23 16: INR 1.0 (0.9-1.1) 01/29/23 16: APTT 47.7 Seconds (21.0-31.0) H* 01/30/23 05:43 PTT Ratio 1.7 01/30/23 05:43 Sodium 142 mmol/L (136-145) 01/30/23 05:43 Potassium 4.2 mmol/L (3.5-5.1) 01/30/23 05:43 Chloride 110 mmol/L (98-107) H 01/30/23 05:43 Carbon Dioxide 26 mmol/L (21-32) 01/30/23 05:43 Anion Gap 6 (3-11) 01/30/23 05:43 BUN 16 mg/dl (6-23) 01/30/23 05:43 Creatinine 0.75 mg/dl (0.6-1.2) 01/30/23 05:43 Est Cr Clr Drug Dosing 73.0 ml/min 01/30/23 05:43 Est GFR ( Amer) 99.7 ml/min 01/30/23 05:43 Est GFR (Non-Af Amer) 86.0 ml/min 01/30/23 05:43 BUN/Creatinine Ratio 21.3 (10-20) H 01/30/23 05:43 Glucose 111 mg/dl (70-99(Fasting)) H 01/30/23 05:43 Estimat Average Glucose 123 mg/dl 01/30/23 05:43 Hemoglobin A1c 5.9 % (4.5-5.6) H 01/30/23 05:43 Calcium 8.8 mg/dl (8.6-10.3) 01/30/23 05:43 Phosphorus 4.0 mg/dl (2.5-4.9) 01/30/23 05:43 Magnesium 2.1 mg/dl (1.7-2.4) 01/30/23 05:43 Total Bilirubin 0.3 mg/dl (0.2-1.0) 01/29/23 Unknown AST 35 U/L (13-39) 01/29/23 Unknown ALT 46 U/L (7-52) 01/29/23 Unknown Alkaline Phosphatase 99 U/L (34-104) 01/29/23 Unknown Troponin I High Sens 9.4 pg/ml (0-14) 01/29/23 Unknown Total Protein 7.4 gm/dl (6.0-8.3) 01/29/23 Unknown Albumin 4.3 gm/dl (3.4-5.0) 01/29/23 Unknown Globulin 3.1 gm/dl (2.5-4.0) 01/29/23 Unknown Albumin/Globulin Ratio 1.4 (0.9-2) 01/29/23 Unknown Triglycerides 100 mg/dl (0-150) 01/30/23 05:43 Cholesterol 165 mg/dl (0-200) 01/30/23 05:43 LDL Cholesterol, Calc 104 mg/dl 01/30/23 05:43 VLDL Cholesterol, Calc 20 mg/dl (0-30) 01/30/23 05:43 HDL Cholesterol 41 mg/dl 01/30/23 05:43 Cholesterol/HDL Ratio 4.0 (0-5) 01/30/23 05:43 Lipase 23 U/L (11-82) 01/29/23 Unknown TSH 3.520 uIu/ml (0.300-4.500) 01/29/23 Unknown SARS-CoV-2, RNA, NAAT NEGATIVE (NEGATIVE) 01/29/23 07:17 Impressions Chest X-Ray 01/29/23 06:16 XR chest 1V portable HISTORY: 62 years-old Female Chest pain, nonspecific acute chest pain COMPARISON: 06/03/2014 TECHNIQUE: AP view of the chest FINDINGS: Cardiomediastinal and hilar silhouettes are within normal limits. No pneumothorax, pleural effusion, airspace consolidation or pulmonary edema. Bones appear grossly intact. IMPRESSION: No acute process. ACT 112: Negative or not required by law. The above report was generated using voice recognition software. It may contain grammatical, syntax or spelling errors. Electronically signed by: Stefan Oliveira M.D. 01/29/2023 6:54 AM
[2023-01-30] MEDS: Heparin Adult STANDARD Wt-Based Dextrose 5% 25,000 units/500 mL IV SCH (16:20)
[2023-01-31 06:11] LABS: Basophils # (auto) 0.03 K/uL (0-0.2); Basophils % (auto) 0.4 %; Eosinophils # (auto) 0.07 K/uL (0-0.50); Hematocrit (blood only) 43.4 % (37.0-47.0); Hemoglobin 14.3 g/dl (12.0-16.0); Immature Granulocytes # (auto) 0.03 K/uL (0.01-0.20); Immature Granulocytes % (auto) 0.4 %; Lymphocytes # (auto) 2.68 K/uL (1.2-3.4); Lymphocytes % (auto) 36.7 %; Mean Corpuscular Hemoglobin 28.1 pg (25.0-34.0); Mean Corpuscular Hgb Conc 32.9 g/dL (32.0-36.0); Mean Corpuscular Volume 85.4 fL (80.0-100.0); Monocytes # (auto) 0.66 K/uL (0.11-0.59); Neutrophils # (auto) 3.84 K/uL (1.40-6.50); Neutrophils % (auto) 52.5 %; Platelet Count 240 K/uL (130-400); RDW Coefficient of Variation 13.7 % (11.5-14.5); RDW Standard Deviation 42.9 fL (36.4-46.3); Red Blood Count 5.08 M/uL (4.20-5.40); White Blood Count 7.31 K/ul (4.8-10.8)
[2023-01-31 06:19] LABS: Calcium 8.7 mg/dl (8.6-10.3); Creatinine Clr Calc Pharmacy 79.3 ml/min; Est GFR (African American) 108.9 ml/min
[2023-01-31 06:30] LABS: Partial Thromboplastin Ratio 1.6; Partial Thromboplastin Time 43.9 Seconds (21.0-31.0)
[2023-01-31] MEDS: dilTIAZem HCL 125 MG in DEXTROSE 5% 100 ML IV SCH (06:33)
[2023-01-31] MEDS: METOPROLOL TARTRATE 25 MG TAB PO SCH ×2 (08:06→20:00)
--- NOTE | 2023-01-31 12:44 | Cardiology Progress Note ---
Date of Service January 31, 2023 Assessment & Plan (1) Atrial fibrillation with rapid ventricular response: (2) Precordial chest pain: Plan The patient's heart rates are controlled but her blood pressure is on the low side so I will decrease the diltiazem to 2.5 mg/h IV. At this point I have discussed with her an elective cardioversion following a transesophageal echocardiogram which can be performed tomorrow. In the shared decision-making process the patient would prefer to be cardioverted prior to being discharged home and therefore I have scheduled her for CATHI cardioversion with anesthesia.I have explained the risk, benefit and intent to the CATHI as well as cardioversion to the patient and she is willing to proceed. Admission and Anticipated Discharge Date Admission Date: January 29, 2023 Subjective No new cardiac complaints. Review of Systems Review of Systems: Review of Systems: See HPI for pertinent positives. All other 10 point review of systems are negative. Physical Exam Physical Exam: General: no acute distress and stated age Head: normocephalic, no masses, lesions, tenderness or abnormalities Eyes: conjunctiva are pink and non-injected, sclera clear Neck: supple, no adenopathy, no bruits, normal jugular venous pulse, no hepatojugular reflux Chest: normal shape and normal respiratory effort Lungs: clear to auscultation and percussion Cardiac Exam: - irregular rate & rhythm, no murmurs gallops or rubs - normal S1, normal S2 Pulses: 2(+) throughout Abdomen: abdomen soft, non-tender, no abnormal masses and no hepatosplenomegaly Musculoskeletal: no gait disturbance, no joint inflammation, no deforming arthritis Extremities: no edema and no cyanosis Neuro: grossly normal exam Results & Data Vital Signs (Past 12 Hours) Vital Signs Temp Pulse Pulse Resp BP BP Pulse Ox 01/31/23 12:36 99 H 100/69 01/31/23 11:24 36.7 C 80 19 89/65 L 96 01/31/23 07:23 73 01/31/23 07:14 36.6 C 97 H 18 96/63 L 95 01/31/23 02:17 36.4 C L 75 18 129/86 90 O2 Del Method 01/31/23 12:36 01/31/23 11:24 Room Air 01/31/23 07:23 01/31/23 07:14 Room Air 01/31/23 02:17 Room Air Laboratory Results Laboratory Results - last 24 hr 01/31/23 01/31/23 01/31/23 05:20 05:20 05:20 WBC 7.31 RBC 5.08 Hgb 14.3 Hct 43.4 MCV 85.4 MCH 28.1 MCHC 32.9 RDW Std Deviation 42.9 RDW Coeff of Reuben 13.7 Plt Count 240 MPV 12.0 Immature Gran % (Auto) 0.4 Neut % (Auto) 52.5 Lymph % (Auto) 36.7 [place] % (Auto) 9.0 Eos % (Auto) 1.0 Baso % (Auto) 0.4 Neut # (Auto) 3.84 Lymph # (Auto) 2.68 [place] # (Auto) 0.66 H Eos # (Auto) 0.07 Baso # (Auto) 0.03 Immature Gran # (Auto) 0.03 APTT 43.9 H PTT Ratio 1.6 Sodium 142 Potassium 4.0 Chloride 108 H Carbon Dioxide 28 Anion Gap 6 BUN 20 Creatinine 0.69 Est Cr Clr Drug Dosing 79.3 Est GFR ( Amer) 108.9 Est GFR (Non-Af Amer) 94.0 BUN/Creatinine Ratio 29.0 H Glucose 109 H Calcium 8.7 Magnesium 2.0 Medications Administered Current Inpatient Medications Acetaminophen (Acetaminophen 325 Mg Tab) 650 mg PO Q4H PRN PRN Reason: Moderate Pain (Scale 4, 5, 6) Stop: 02/28/23 12:10 Heparin Sodium/Dextrose (Heparin Sodium/Dextrose) 25,000 units in 500 mls @ 22 mls/hr IV .[id number] [facility]; Protocol Stop: 02/28/23 15:59 Last Titration: 01/31/23 07:09 Dose: 1,100 units/hr, 22 mls/hr Diltiazem HCl 125 mg/ Dextrose 125 mls @ 2.5 mls/hr IV .Q24H [facility]; Protocol Stop: 03/01/23 09:59 Last Titration: 01/31/23 12:37 Dose: 2.5 mg/hr, 2.5 mls/hr Metoprolol Tartrate (Metoprolol Tartrate 25 Mg Tab) 25 mg PO BID [facility] Stop: 03/01/23 20:59 Last Admin: 01/31/23 08:06 Dose: 25 mg Ondansetron HCl (Ondansetron Inj 2 Mg/Ml 2 Ml Vial) 4 mg IV Q4H PRN PRN Reason: Nausea And Vomiting Stop: 02/28/23 12:10
--- NOTE | 2023-01-31 15:09 | Hospitalist Progress Note ---
Date of Service January 31, 2023 Assessment & Plan (1) New onset a-fib: (2) Prediabetes: (3) Palpitations: Plan: Patient is a 62-year-old female with no significant past medical history who presented to the ED with palpitation and chest discomfort On presentation to the ED, found to have atrial fibrillation with RVR; ventricular rate in 140s to 150s. Started on Cardizem drip. Admitted to telemetry floor EKG personally reviewed; atrial fibrillation with ventricular rate of 136. Echocardiogram shows normal LV chamber with mild concentric LVH; EF of 60 to 65%; no significant valvular abnormality. Discussed with cardiology; Dr. Lantigua with cardioversion tomorrow AM. N.p.o. from midnight. Patient is currently on heparin drip; will prescribe Eliquis as outpatient. Labs personally reviewed; A1c of 5.9%; prediabetic. [id number], LDL of 104. TSH3.5. DVT ppx: -Heparin drip CODE: Full code Dispo: Continues to be hospitalized for management of to A-fib with RVR. possible cardioversion tomorrow a.m. Admission and Anticipated Discharge Date Admission Date: January 29, 2023 Subjective Patient seen and examined at bedside. She reports improvement in her symptoms today. She is presently at Cardizem of 5 mg/h and metoprolol. Telemetry reviewed; continues to have A-fib with controlled ventricular rate. Review of Systems Review of Systems: All systems reviewed & are unremarkable except as noted in Subjective Physical Exam Physical Exam: General: awake, alert, no apparent distress Head: Normocephalic, atraumatic ENT: PERRL, EOMI, no pharyngeal exudate, mucous membranes moist Chest: Clear to auscultation, on room air, no adventitious breath sounds Cardiac: Irregularly irregular; no murmur Abdominal: NABS x 4 quadrants, soft, nondistended, nontender to palpation, no rebound or guarding Extremities: Normal inspection, no peripheral edema or erythema, calfs nontender to palpation Psych: Normal mood and affect Neuro: AAO x 3, strength intact bilaterally and rated 5/5, no motor deficits, speech is clear, no peripheral sensory deficits Results & Data Results & Data Vital Signs (Past 12 Hours) Vital Signs Temp Pulse Pulse Resp BP BP Pulse Ox 01/31/23 12:36 99 H 100/69 01/31/23 11:24 36.7 C 80 19 89/65 L 96 01/31/23 07:23 73 01/31/23 07:14 36.6 C 97 H 18 96/63 L 95 O2 Del Method 01/31/23 12:36 01/31/23 11:24 Room Air 01/31/23 07:23 01/31/23 07:14 Room Air Laboratory Results Laboratory Results WBC 7.31 K/ul (4.8-10.8) 01/31/23 05:20 RBC 5.08 M/uL (4.20-5.40) 01/31/23 05:20 Hgb 14.3 g/dl (12.0-16.0) 01/31/23 05:20 Hct 43.4 % (37.0-47.0) 01/31/23 05:20 MCV 85.4 fL (80.0-100.0) 01/31/23 05:20 MCH 28.1 pg (25.0-34.0) 01/31/23 05:20 MCHC 32.9 g/dL (32.0-36.0) 01/31/23 05:20 RDW Std Deviation 42.9 fL (36.4-46.3) 01/31/23 05:20 RDW Coeff of Reuben 13.7 % (11.5-14.5) 01/31/23 05:20 Plt Count 240 K/uL (130-400) 01/31/23 05:20 MPV 12.0 fL (9.4-12.4) 01/31/23 05:20 Immature Gran % (Auto) 0.4 % 01/31/23 05:20 Neut % (Auto) 52.5 % 01/31/23 05:20 Lymph % (Auto) 36.7 % 01/31/23 05:20 Childress % (Auto) 9.0 % 01/31/23 05:20 Eos % (Auto) 1.0 % 01/31/23 05:20 Baso % (Auto) 0.4 % 01/31/23 05:20 Neut # (Auto) 3.84 K/uL (1.40-6.50) 01/31/23 05:20 Lymph # (Auto) 2.68 K/uL (1.2-3.4) 01/31/23 05:20 Childress # (Auto) 0.66 K/uL (0.11-0.59) H 01/31/23 05:20 Eos # (Auto) 0.07 K/uL (0-0.50) 01/31/23 05:20 Baso # (Auto) 0.03 K/uL (0-0.2) 01/31/23 05:20 Immature Gran # (Auto) 0.03 K/uL (0.01-0.20) 01/31/23 05:20 PT 10.4 Seconds (9.0-12.0) 01/29/23 16:23 INR 1.0 (0.9-1.1) 01/29/23 16:23 APTT 43.9 Seconds (21.0-31.0) H 01/31/23 05:20 PTT Ratio 1.6 01/31/23 05:20 Sodium 142 mmol/L (136-145) 01/31/23 05:20 Potassium 4.0 mmol/L (3.5-5.1) 01/31/23 05:20 Chloride 108 mmol/L (98-107) H 01/31/23 05:20 Carbon Dioxide 28 mmol/L (21-32) 01/31/23 05:20 Anion Gap 6 (3-11) 01/31/23 05:20 BUN 20 mg/dl (6-23) 01/31/23 05:20 Creatinine 0.69 mg/dl (0.6-1.2) 01/31/23 05:20 Est Cr Clr Drug Dosing 79.3 ml/min 01/31/23 05:20 Est GFR ( Amer) 108.9 ml/min 01/31/23 05:20 Est GFR (Non-Af Amer) 94.0 ml/min 01/31/23 05:20 BUN/Creatinine Ratio 29.0 (10-20) H 01/31/23 05:20 Glucose 109 mg/dl (70-99(Fasting)) H 01/31/23 05:20 Estimat Average Glucose 123 mg/dl 01/30/23 05:43 Hemoglobin A1c 5.9 % (4.5-5.6) H 01/30/23 05:43 Calcium 8.7 mg/dl (8.6-10.3) 01/31/23 05:20 Phosphorus 4.0 mg/dl (2.5-4.9) 01/30/23 05:43 Magnesium 2.0 mg/dl (1.7-2.4) 01/31/23 05:20 Total Bilirubin 0.3 mg/dl (0.2-1.0) 01/29/23 Unknown AST 35 U/L (13-39) 01/29/23 Unknown ALT 46 U/L (7-52) 01/29/23 Unknown Alkaline Phosphatase 99 U/L (34-104) 01/29/23 Unknown Troponin I High Sens 9.4 pg/ml (0-14) 01/29/23 Unknown Total Protein 7.4 gm/dl (6.0-8.3) 01/29/23 Unknown Albumin 4.3 gm/dl (3.4-5.0) 01/29/23 Unknown Globulin 3.1 gm/dl (2.5-4.0) 01/29/23 Unknown Albumin/Globulin Ratio 1.4 (0.9-2) 01/29/23 Unknown Triglycerides 100 mg/dl (0-150) 01/30/23 05:43 Cholesterol 165 mg/dl (0-200) 01/30/23 05:43 LDL Cholesterol, Calc 104 mg/dl 01/30/23 05:43 VLDL Cholesterol, Calc 20 mg/dl (0-30) 01/30/23 05:43 HDL Cholesterol 41 mg/dl 01/30/23 05:43 Cholesterol/HDL Ratio 4.0 (0-5) 01/30/23 05:43 Lipase 23 U/L (11-82) 01/29/23 Unknown TSH 3.520 uIu/ml (0.300-4.500) 01/29/23 Unknown SARS-CoV-2, RNA, NAAT NEGATIVE (NEGATIVE) 01/29/23 07:17 Impressions Chest X-Ray 01/29/23 06:16 XR chest 1V portable HISTORY: 62 years-old Female Chest pain, nonspecific acute chest pain COMPARISON: 06/03/2014 TECHNIQUE: AP view of the chest FINDINGS: Cardiomediastinal and hilar silhouettes are within normal limits. No pneumothorax, pleural effusion, airspace consolidation or pulmonary edema. Bones appear grossly intact. IMPRESSION: No acute process. ACT 112: Negative or not required by law. The above report was generated using voice recognition software. It may contain grammatical, syntax or spelling errors. Electronically signed by: Stefan Oliveira M.D. 01/29/2023 6:54 AM
[2023-01-31 15:13] LABS: Partial Thromboplastin Ratio 1.4; Partial Thromboplastin Time 39.7 Seconds (21.0-31.0)
[2023-01-31] MEDS: Heparin Adult STANDARD Wt-Based Dextrose 5% 25,000 units/500 mL IV SCH ×2 (15:26→16:58)
--- NOTE | 2023-01-31 16:03 | Anesthesiology Consultation ---
Date of Service January 31, 2023 Assessment & Plan (1) Encounter for pre-operative examination: Chart Review Chart Review: Acceptable Risk for Surgery History Height/Weight Height: 5 ft 3 in Weight: 68 kg Allergies Allergy/AdvReac Type Severity Reaction Status Date / Time No Known Allergies Allergy Unverified 04/28/15 19:38 Medications Home Medications Medication Instructions Recorded Confirmed Last Taken cyanocobalamin (vitamin B-12) 1 tab PO DAILY 01/29/23 01/29/23 01/28/23 lysine 500 mg tablet 500 mg PO DAILY 01/29/23 01/29/23 01/28/23 magnesium 250 mg tablet 250 mg PO DAILY 01/29/23 01/29/23 01/28/23 apixaban 5 mg tablet (Eliquis) 5 mg PO BID #60 tabs 01/30/23 Unknown Active Medications Generic Name Dose Route Start Last Admin Trade Name Freq PRN Reason Stop Dose Admin Heparin Sodium/Dextrose 25,000 units in 500 mls @ 23 mls/hr 01/29/23 16:00 01/31/23 15:26 Heparin Sodium/Dextrose IV 02/28/23 15:59 1,150 units/hr .[id number] CHATO 23 mls/hr Administration Protocol 1,150 UNITS/HR Diltiazem HCl 125 mg/ Dextrose 125 mls @ 2.5 mls/hr 01/30/23 10:00 01/31/23 12:37 IV 03/01/23 09:59 2.5 mg/hr .Q24H CHATO 2.5 mls/hr Titration Protocol 2.5 MG/HR Metoprolol Tartrate 25 mg 01/30/23 21:00 01/31/23 08:06 Metoprolol Tartrate 25 Mg Tab PO 03/01/23 20:59 25 mg BID CHATO Administration Past Medical History Medical History (Updated 01/31/23 @ 16:03 by Elgin Funes MD) Anemia Atrial fibrillation with rapid ventricular response Bartholin's gland abscess S/p molar removal Prediabetes Past Family History Family History Mother Cancer Father Heart disease Hypertension Past Surgical History Surgical History History of appendectomy age 11 History of hand surgery Left 5th digit tendon laceration s/p repair History of tonsillectomy Social History Smoking Status: Never smoker Hx Alcohol Use: No Hx Substance Use: No Physical Exam Vital Signs Last Vital Signs Temp 36.4 C L 01/31/23 15:21 Pulse 87 01/31/23 15:21 Resp 19 01/31/23 15:21 BP 140/70 01/31/23 15:21 Pulse Ox 96 01/31/23 15:21 O2 Del Method Room Air 01/31/23 15:21 Testing Laboratory Results 01/31/23 05:20 01/31/23 05:20 PT 10.4 Seconds (9.0-12.0) 01/29/23 16:23 INR 1.0 (0.9-1.1) 01/29/23 16:23 APTT 39.7 Seconds (21.0-31.0) H 01/31/23 14:05 Hemoglobin A1c 5.9 % (4.5-5.6) H 01/30/23 05:43 Electrocardiogram Date: 01/29/23 Findings: + AFIB @ (136) Echocardiogram Date: 01/29/23 EF: 60-65% LV Function: normal Valvular Disease: + MR (mild)
[2023-01-31 21:59] LABS: Partial Thromboplastin Ratio 1.5; Partial Thromboplastin Time 42.5 Seconds (21.0-31.0)
[2023-02-01 05:15] LABS: Est GFR (African American) 98.1 ml/min; Est GFR (Non-African American) 84.7 ml/min; Potassium 4.2 mmol/L (3.5-5.1)
[2023-02-01 05:44] LABS: Partial Thromboplastin Ratio 1.9
[2023-02-01 05:48] LABS: Partial Thromboplastin Time 52.9 Seconds (21.0-31.0)
[2023-02-01] MEDS: Heparin Adult STANDARD Wt-Based Dextrose 5% 25,000 units/500 mL IV SCH (06:54)
--- NOTE | 2023-02-01 07:15 | History & Physical Bridge Note ---
Date of Service February 01, 2023 History & Physical Bridge Note I have examined the patient, reviewed the History & Physical and in the interval since the performance of the History & Physical I have noted the following changes of clinical significance: no changes noted
[2023-02-01] MEDS ORDERED: BENZOCAINE/TETRACAIN/BUTAM 50 APPLN/5 GM CAN EXT ONE (07:17)
[2023-02-01] MEDS ORDERED: LIDOCAINE 2% MPF LOCAL 5 ML VIAL ONE (07:55)
[2023-02-01] MEDS ORDERED: PROPOFOL IV EMULSION 10 MG/ML 20 ML VIAL IV ONE (07:55)
--- NOTE | 2023-02-01 08:08 | Cardioversion ---
Date of Service February 01, 2023 Electrical Cardioversion Rpt Electrical Cardioversion Report Pre & Post Diagnosis Operation Date: 02/01/23 13:00 Preprocedure diagnosis: Symptomatic persistent atrial fibrillation, rule out left atrial appendage thrombus Post procedure diagnosis: No left atrial or left atrial appendage thrombus, successful conversion sinus rhythm I identified the patient and participated in the time-out.:Yes Procedure Operation Date: 02/01/23 13:00 Actual Procedures p Echo Transesophageal - DO maryan Carney Echo Color Flow - DO maryan Carney Echo Doppler Complete - DO maryan Carney Cardioversion - Eleno Alcala DO Procedure note: Transesophageal echocardiogram guided direct-current cardioversion After informed consent was obtained and timeout was performed the patient was sedated with the assistance of the anesthesia service receiving a total of 80 mg of IV lidocaine and 120 mg of IV propofol. A focused transesophageal echocardiogram was performed for risk ratification. The left left atrium and left atrial appendage were well visualized with no evidence of thrombus. Mild mitral regurgitation was present. The patient underwent direct-current cardioversion receiving a single dose of 200 J of synchronized biphasic energy with successful conversion to sinus rhythm. Surgeon Eleno Alcala DO Scientific Laboratory Supervisor RIYA Sorto Estimated Blood Loss 0 Specimens None Anesthesia Type MAC Complications None Indications Persistent atrial fibrillation Description of Procedure As noted above I attest to the content of the Intraoperative Record and any orders documented therein. Any exceptions are noted below.
--- NOTE | 2023-02-01 08:21 | Cardiology Progress Note ---
Date of Service February 01, 2023 Assessment & Plan (1) Atrial fibrillation with rapid ventricular response: Plan: -successful CATHI guided DCCV. -Will look in to cost of Eliquis. If affordable will transition from heparin infusion to Eliquis buy administering first Eliquis dose when heparin infusion is turned off. -Continue oral metoprolol tartrate 25 mg two times per day. -Stop IV dilitazem. -If feels well , anticipate discharge after lunch today. (2) Mild mitral regurgitation: Plan: -Mild MR on CATHI. -Will follow clinically as outpatient. Admission and Anticipated Discharge Date Admission Date: January 29, 2023 Subjective Patient seen in cardiology follow up prior to , during , and post CATHI guided direct current cardioversion. Patient remained in atrial fibrillation overnight. Arrived to heart center procedure room with heparin infusing. Denied resting chest pain or shortness of breath. Review of Systems Review of Systems: All systems reviewed & are unremarkable except as noted in HPI & below Physical Exam Constitutional: WD/WN, vitals as above Respiratory: normal respiratory effort, lungs clear to auscultation Cardiovascular: irregular rhythm prior to cardioversion , 1/6 SM Gastrointestinal (Abdomen): normal bowel sounds, soft, nontender, no hepatosplenomegaly Neurologic: PERRL, EOMI, accommodation nl, no face palsy, no dysarthria Results & Data Vital Signs (Past 12 Hours) Vital Signs Temp Pulse Pulse Pulse Resp BP BP 02/01/23 08:05 78 16 104/78 99/65 L 02/01/23 07:41 82 02/01/23 07:50 81 16 99/65 L 01/31/23 23:00 93 H 02/01/23 04:00 36.5 C 83 17 95/65 L 01/31/23 23:30 36.6 C 83 16 90/59 L Pulse Ox O2 Del Method 02/01/23 08:05 95 Room Air 02/01/23 07:41 02/01/23 07:50 94 Room Air 01/31/23 23:00 02/01/23 04:00 96 Room Air 01/31/23 23:30 95 Room Air Laboratory Results Coagulation 01/31/23 01/31/23 02/01/23 Range/Units 14:05 21:13 04:47 APTT 39.7 H 42.5 H 52.9 H* (21.0-31.0) Seconds Comprehensive Metabolic Panel 02/01/23 Range/Units 04:47 Sodium 141 (136-145) mmol/L Potassium 4.2 (3.5-5.1) mmol/L Chloride 108 H (98-107) mmol/L Carbon Dioxide 29 (21-32) mmol/L BUN 19 (6-23) mg/dl Creatinine 0.76 (0.6-1.2) mg/dl Glucose 110 H (70-99(Fasting)) mg/dl Calcium 9.0 (8.6-10.3) mg/dl Diagnostic Findings EKG performed 02/01/23 , interpreted independently: SR at 74 bpm. compared to 01/29/23 , SR has replaced AF and the ventricular rate has improved by 62 bpm.
[2023-02-01] MEDS: METOPROLOL TARTRATE 25 MG TAB PO SCH (08:32)
[2023-02-01] MEDS ORDERED: APIXABAN 5 MG TABLET PO SCH (09:00)
--- NOTE | 2023-02-01 10:39 | Communication Note ---
Date of Service: February 01, 2023 Patient reassessed in her room, room 452, status post T guided cardioversion. She is feeling well, remained in sinus rhythm in 70s. She had received her f irst dose of Eliquis as of 833 this morning, and heparin was discontinued. Plan for tentative discharge metoprolol tartrate 25 mg twice daily, Eliquis 5 mg twice daily. Coupon for Eliquis to be provided. I will arrange cardiology follow-up within 1 to 3 weeks. Per patient's request, I attempted to reach out to her to get him up on today's events, I was unable to reach him, questions answered to the patient satisfaction. Care coordinated with [facility] via [place] Text correspondence .
--- NOTE | 2023-02-01 11:29 | Anesthesiology Progress Note ---
Date of Service February 01, 2023 Anesthesia Post Procedure Vital Signs Vital Signs: Temp Pulse Pulse Pulse Pulse Resp BP 02/01/23 11:05 36.6 C 62 19 02/01/23 10:23 36.7 C 78 71 89 20 104/78 02/01/23 09:10 73 02/01/23 08:29 36.7 C 71 20 02/01/23 08:05 78 16 104/78 02/01/23 07:41 82 02/01/23 07:50 81 16 01/31/23 23:00 93 H 02/01/23 04:00 36.5 C 83 17 01/31/23 23:30 36.6 C 83 16 90/59 L 01/31/23 19:00 36.5 C 69 18 105/62 01/31/23 16:58 100 H 01/31/23 15:21 36.4 C L 87 19 01/31/23 12:36 99 H 100/69 BP Pulse Ox O2 Del Method 02/01/23 11:05 107/64 93 Room Air 02/01/23 10:23 109/63 91 02/01/23 09:10 02/01/23 08:29 109/63 91 Room Air 02/01/23 08:05 99/65 L 95 Room Air 02/01/23 07:41 02/01/23 07:50 99/65 L 94 Room Air 01/31/23 23:00 02/01/23 04:00 95/65 L 96 Room Air 01/31/23 23:30 95 Room Air 01/31/23 19:00 95 Room Air 01/31/23 16:58 01/31/23 15:21 140/70 96 Room Air 01/31/23 12:36 Transfer of Care Handoff Completed per policy Notes Mental Status: alert / awake / arousable and participated in evaluation Patient Amnestic to Procedure: Yes Nausea / Vomiting: adequately controlled Pain: adequately controlled Airway Patency, RR, SpO2: stable & adequate BP & HR: stable & adequate Hydration State: stable & adequate Anesthetic Complications: no major complications apparent and Pt Satisfied with anesthetic care
--- NOTE | 2023-02-01 13:20 | Electrocardiogram Report ---
Test Reason : Blood Pressure : / mmHG Vent. Rate : 074 BPM Atrial Rate : 074 BPM P-R Int : 142 ms QRS Dur : 070 ms QT Int : 388 ms P-R-T Axes : 043 004 024 degrees QTc Int : 430 ms Normal sinus rhythm Normal ECG When compared with ECG of 29-JAN-2023 06:27, Sinus rhythm has replaced Atrial fibrillation Vent. rate has decreased BY 62 BPM Confirmed by Baltazar Miller ([id number]) on 02/01/2023 1:20:02 PM Referred By: REFERRED SELF Confirmed By:Baltazar Miller
--- NOTE | 2023-02-01 15:00 | Discharge Summary ---
Date of Service February 01, 2023 Admission HPI Per Admitting Provider This is a 62-year-old female with PMHx of seasonal allergies, ocular migraine who presents to the hospital with acute onset of chest pressure, bilateral arm pressure, palpitations and slight sensation of shortness of breath which woke her at 12:30 AM. Pt notes this pounding in her chest sensation did not away after a few hours. She reports having fleeting moments of irregular heart beat about 10 years ago where she underwent evaluation with a Holter monitor but does not recall anything came out of it. She has of other episodes where similar sensation has lasted a few moments and then goes away. She notes she was drinking plenty of water yesterday and throughout the night, she last ate around 7:30 pm yesterday. As far as medications go, she is only on 3 supplements: Magnesium, lysine and B12 which she takes whenever she remembers them. She reports a strong family history of atrial fibrillation, reporting that her father and 5 out of 6 siblings now have been diagnosed with afib and some have undergone ablations for such, and one of her brothers now has a pacemaker. All of her mothers brothers were diagnosed with afib. 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 Denies alcohol use or smoking. She lives at home with her , Nilo, who is present at bedside. Admission Exam Per Admitting Provider General: awake, alert, no apparent distress Head: Normocephalic, atraumatic ENT: PERRL, EOMI, no pharyngeal exudate, mucous membranes moist Chest: Clear to auscultation, on room air, no adventitious breath sounds Cardiac: Irregularly irregular, HR peaks into the 150s with sitting up in bed, no JVD, normal peripheral pulses, good capillary refill Abdominal: NABS x 4 quadrants, soft, nondistended, nontender to palpation, no rebound or guarding Extremities: Normal inspection, no peripheral edema or erythema, calfs nontender to palpation Psych: Normal mood and affect Neuro: AAO x 3, strength intact bilaterally and rated 5/5, no motor deficits, speech is clear, no peripheral sensory deficits Principal Diagnosis Atrial fibrillation with RVR Prediabetes Discharge Exam Constitutional: WD/WN, vitals as above, NAD, sitting up in bed, pleasant, conversing easily Respiratory: normal respiratory effort, lungs clear to auscultation, no wheeze, rales, rhonchi. Normal insp/exp effort, no accessory muscle use Cardiovascular: RRR, no murmur, no edema Vessels: no JVD or carotid bruit Chest: normal inspection of chest Abdomen: normal bowel sounds, soft, nontender, no hepatosplenomegaly Musculoskeletal: no cyanosis or clubbing, extremities motor strength 5/5 Skin: no rashes, warm and dry normal turgor Neurologic: PERRL, EOMI, accommodation nl, no face palsy, no dysarthria CN's II- XI intact bilaterally and moves all extremities Psychiatric: A+Ox3, euthymic affect Lymphatic: no cervical or axillary lymphadenopathy : deferred Discharge Data Allergies Allergy/AdvReac Type Severity Reaction Status Date / Time No Known Allergies Allergy Unverified 04/28/15 19:38 Consultations 01/29/23 08:27 ED Decision to Admit Stat 01/29/23 09:32 Consult Cardiology Routine 01/31/23 12:36 Consult Anesthesiology Routine Procedures Performed Operation Date: 02/01/23 13:00 Actual Procedures p Echo Transesophageal - DO maryan Carney Echo Color Flow - DO maryan Carney Echo Doppler Complete - DO maryan Carney Cardioversion - Eleno Alcala DO Hospital Course (1) New onset a-fib: (2) Prediabetes: (3) Palpitations: Patient is a 62-year-old female with no significant past medical history who presented to the ED with palpitation and chest discomfort On presentation to the ED, found to have atrial fibrillation with RVR; ventricular rate in 140s to 150s. Started on Cardizem drip. Admitted to telemetry floor EKG personally reviewed; atrial fibrillation with ventricular rate of 136. Echocardiogram shows normal LV chamber with mild concentric LVH; EF of 60 to 65%; no significant valvular abnormality. She was also started on heparin drip. Patient was placed on metoprolol and Cardizem was weaned off. Patient underwent CATHI with cardioversion on . She was prescribed metoprolol 25 mg twice daily and Eliquis. She is discharged home with instruction to follow-up with her primary care doctor. Of note, patient was found to have A1c of 5.9%; dietary counseling was done. Patient to follow-up with her PCP regarding long-term management. Total Time Total Time Spent Total Time Spent (In Minutes): 35 Total Time Includes: Examination of the Patient, Discharge Planning, Medication Reconciliation, Communication With Other Providers and Other Discharge Plan Discharge Items Patient Disposition: Home - Self-Care Reason For Visit: AFIB RVR Discharge Diagnosis: Atrial fibrillation with RVR Prediabetes Condition on Discharge: Good Activity: Resume your previous activity Non-emergency contact: Primary Care Provider Call non-emergency contact if: you have any medication questions and your symptoms worsen Follow-up/Referrals: Fabián Ramírez MD [Physician] - (Date & Time 02/04/2023 11:00 AM Provider Fabián Ramírez III, MD Department [facility] ) Diet: Regular Addtl Attending Provider Instructions: You were admitted to the hospital with irregular heart rhythm called atrial fibrillation. You underwent cardioversion by cardiology on February 01, 2023. You are prescribed following medications: 1) metoprolol 25 mg to be taken twice daily 2) Eliquis 5 mg to be taken twice daily You were also found to have HbA1c of 5.9% which is prediabetic. Please follow the dietary advice given to you. Pending Studies at Discharge: No Stand-Alone Forms: My [facility] [employer], Work/School Release, Smoking Cessation Medications and DC Order Prescriptions: New Eliquis 5 mg tablet 5 mg PO BID Qty: 60 0RF metoprolol tartrate 25 mg Tablet 25 mg PO BID Qty: 60 0RF Continued magnesium 250 mg Tablet 250 mg PO DAILY lysine 500 mg Tablet 500 mg PO DAILY cyanocobalamin (vitamin B-12) 1 tab PO DAILY Discharge Orders: Discharge Order (Routine); Ordered 02/01/23 Ordered By: Kleber Rosales/Other Patient Handouts: Prediabetes, AFib Dc, Cardioversion Dc, AFib Preventing Stroke Admission Data Admit Date/Time: 01/29/23 08:42 Attending Provider: Kleber Hermosillo Admit Provider: Kleber Hermosillo Primary Care Provider: PCP,NO Other Providers: Mayur Stark ; Kleber Hermosillo ; Jayda Carson ; Carlos Martinez ; Nataila León ; Meli Hensley ; Shanique Lao ; Elgin Funes ; Wayne Thornton ; Chuy Pillai ; Joaquin Chao ; Rosalva Chao ; Freddy Pearl ; Pricilla Grady ; Cory Child ; August Roper ; Hunter Hernandez ; Ian Sandoval ; Josefina Moran ; Kyler Christina A ; Helen Henderson ; Sofia Christina ; Nabil Simpson ; Elizabeth Conroy ; Bob Gorman ; Leslie Smith ; Randa Mabry ; Mayur Ga ; Irasema Hough A ; Es Tovar A ; Suyapa Chacko ; Suzanne Mayorga ; Salvatore Mayorga V ; Eugenio Alarcon ; Linn Joseph ; Nikos Tavarez ; Aicha Yang ; Salvatore Klein ; Hosea Moran ; Temo Looney ; Fang Yarbrough ; Angelita Rodriguez ; Salvatore Scanlon ; Erich Curran. ; Roselyn Evangelista ; Eleno Torres ; Fabián Sandoval ; Libertad Rosario ; Deidra Arreaga ; Kvng Márquez ; Lucas Coronel ; Elgin Vo Jr ; Clara Figueroa ; Teresa Hayden A. ; Carmen Mcneal A. ; Mayur Luna ; Meli Ribera ; Joaquin Samuel. ; Brian Huitron I. ; Lyubov Pandey S. ; Teresa Carnes A. ; Rhona Araiza S. ; Jeevan Eckert ; Joseph Rodríguez ; Himanshu Silverman ; Spencer Woody V. ; Aydin Barrett ; Desiree Núñez ; Isaak Gaspar Other Interventions: Discharge Summary Assessment (RN) Last Done: 02/01/23 10:23
== END 2023-02-01 13:11 | disposition home or self-care (01) | DRG 310 ==
LOC: ED 06:14 → EDINP 08:42 → 4W 11:51

== ENCOUNTER 2025-01-25 06:01 | Inpatient (IN) ==
[2025-01-25] MEDS: SODIUM CHLORIDE 0.9% 500 ML IV ONE ×2 (06:15→06:43)
[2025-01-25 06:32] LABS: Basophils # (auto) 0.03 K/uL (0.00-0.20); Basophils % (auto) 0.3 %; Eosinophils # (auto) 0.07 K/uL (0.00-0.50); Eosinophils % (auto) 0.7 %; Hematocrit (blood only) 45.8 % (37.0-47.0); Hemoglobin 14.6 g/dl (12.0-16.0); Immature Granulocytes # (auto) 0.04 K/uL (0.01-0.20); Immature Granulocytes % (auto) 0.4 %; Lymphocytes # (auto) 1.79 K/uL (1.20-3.40); Lymphocytes % (auto) 18.8 %; Mean Corpuscular Hemoglobin 27.6 pg (25.0-34.0); Mean Corpuscular Hgb Conc 31.9 g/dL (32.0-36.0); Mean Corpuscular Volume 86.6 fL (80.0-100.0); Mean Platelet Volume 11.5 fL (9.4-12.4); Monocytes # (auto) 0.96 K/uL (0.11-0.59); Monocytes % (auto) 10.1 %; Neutrophils # (auto) 6.61 K/uL (1.40-6.50); Neutrophils % (auto) 69.7 %; Platelet Count 303 K/uL (130-400); RDW Coefficient of Variation 13.6 % (11.5-14.5); RDW Standard Deviation 43.1 fL (36.4-46.3); Red Blood Count 5.29 M/uL (4.20-5.40)
--- NOTE | 2025-01-25 06:32 | Emergency Department Note ---
Impression & Plan Atrial fibrillation with rapid ventricular response, Palpitations, Noncompliance with medication regimen ED Provider Note NAME: AMNA HAMMER AGE: 64 SEX: F : 1960 ARRIVES VIA: Walk-In INFORMANT: Patient, ED PROVIDER(S): Joshua Hargrove DO CHIEF COMPLAINT: Palpitations HPI: The patient is a 64-year-old female who presented to the emergency department for an evaluation of palpitations. The patient has a history of paroxysmal atrial fibrillation. She Dusty felt going to atrial fibrillation last night at approximately 3 in the morning. The patient does complain of some shortness of breath with exertion. She denies having any leg swelling or leg pain. She denies having any chest pain. The patient has not been compliant with her Eliquis or her metoprolol. She feels that the metoprolol makes her go to sleep and makes her very fatigued. The patient denies having any changes to her medications otherwise. ROS: See above HPI for pertinent positives & negatives. A total of 10 systems reviewed and were otherwise negative. PAST MEDICAL HISTORY: See Below PAST SURGICAL HISTORY: See Below FAMILY HISTORY: See Below SOCIAL HISTORY: See Below HOME MEDICATIONS: See Below ALLERGIES: See Below VITALS: See Below PHYSICAL EXAMINATION: GENERAL: Patient is awake alert in no acute distress patient is resting comfortably and showing no signs of anxiety EYES: The conjunctivae are clear. The pupils are round and reactive. EARS, NOSE, MOUTH AND THROAT: The nose is without any evidence of any deformity. Mucous membranes are moist. Tongue is midline. NECK: The neck is nontender and supple. RESPIRATORY: Normal respiratory effort is noted there is no evidence of wheezing rhonchi or rales CARDIOVASCULAR: Tachycardic and irregular heart sounds were noted to auscultation. There is no definite murmur. GASTROINTESTINAL: The abdomen is soft. Abdomen is nontender. MUSCULOSKELETAL/EXTREMITIES: There is no evidence of gross deformity full range of motion is noted in the hips and shoulders. SKIN: There is no obvious evidence of any rash. There are no petechiae, pallor or cyanosis noted. NEUROLOGIC: Patient is awake alert and oriented x3 MEDICAL DECISION MAKING: The patient is a 64-year-old female who has a history of atrial fibrillation. She has not been compliant with her medications. She does not take blood thinners at this time. The patient is on a beta-asher but she stopped taking that as well. The patient presented to the emergency department with complaints of palpitations. She felt as though she went into her atrial fibrillation early this morning. The patient was hypotensive. She was treated with IV fluids IV Cardizem IV calcium as well as IV magnesium. On reevaluation her heart rate had improved but she continued to be in atrial fibrillation. I discussed the patient's laboratory and radiographic studies with her. I discussed her condition with the on-call [facility] group. They have agreed to evaluate the patient in the emergency department for further management and disposition. Given her noncompliance with her blood thinner she may require an echocardiogram or evaluation by cardiology prior to consideration for cardioversion. Triage Nursing notes reviewed. Prior medical records reviewed Vital Signs: reviewed and remarkable for initial hypotension and tachycardia. Differential diagnosis: Premature contractions, electrolyte abnormality, cardiac dysrhythmia, thyroid dysfunction, pulmonary embolism, infection, gastrointestinal, as well as other pathologies. ER treatment provided: See below Diagnostics interpreted by me: ECG: EKG was obtained in the emergency department. My interpretation is atrial fibrillation at 168 bpm. There were no acute ST segment abnormalities noted. There were no PVCs noted. This was compared to a tracing from February 01, 2023. Atrial fibrillation has replaced sinus rhythm. Cardiac Monitoring: An order was placed for continuous cardiac monitoring. The monitor shows a rate of 96 bpm with atrial fibrillation. Laboratory studies: As stated above and show below. Imaging studies: See below. Radiographic imaging was reviewed by myself Consultation(s): I discussed this case with Daisy who is on-call for the [facility]. ED COURSE: Procedures: none Critical Care: I have personally spent greater than 35 minutes of critical care time in the direct management of this patient. This includes bedside care, interpretation of diagnostic studies, and testing, discussion with consultants, patient, and family members, and other required patient management activities. This 35 minutes is in excess of all separately billable procedures. Past Med/Surg History Problem List (Updated 01/25/25 @ 15:00 by Joshua Hargrove DO) Noncompliance with medication regimen (Acute) Atrial fibrillation with rapid ventricular response (Acute) New onset a-fib Encounter for pre-operative examination Prediabetes Palpitations (Acute) Medical History (Updated 01/25/25 @ 15:00 by Joshua Hargrove DO) Atrial fibrillation with rapid ventricular response Precordial chest pain Hypomagnesemia Anemia Mild mitral regurgitation Bartholin's gland abscess S/p molar removal Surgical History History of hand surgery Left 5th digit tendon laceration s/p repair History of tonsillectomy History of appendectomy age 11 Family History Mother Cancer Father Myocardial infarction Atrial fibrillation Heart disease Hypertension Coronary heart disease Brother Atrial fibrillation Brother Hypertrophic cardiomyopathy Atrial fibrillation Brother Atrial fibrillation Social History Smoking Status: Never smoker Second Hand Exposure: No; Do You Dip or Chew Tobacco: No; Hx Alcohol Use: No Hx Substance Use: No Preferred Language: Grenadian Communication Ability: Effective Clinical Medical Transcriptionist Required: No Beliefs That Will Affect Care: None Current Living Situation: Spouse Other Information That Helps Us Care for You: No Feels Safe at Home: Yes Safety Concerns: Feels Safe At This Time Assistive Devices: None Allergies Allergies Allergy/AdvReac Type Severity Reaction Status Date / Time No Known Allergies Allergy Unverified 04/28/15 19:38 Home Meds Home Medications Medication Instructions Recorded Confirmed apixaban 5 mg tablet (Eliquis) 5 mg PO UD 01/25/25 01/25/25 metoprolol tartrate 25 mg tablet 25 mg PO UD 01/25/25 01/25/25 Results & Data (ED) Vital Signs Vital Signs - 24 hr 01/25/25 06:06 01/25/25 06:13 01/25/25 06:15 Temperature 36.5 C Temperature Source Temporal Artery Scan Pulse Rate 166 H 174 H 168 H Pulse Rate [Apical] Pulse Rhythm [Apical] Respiratory Rate 18 20 Respiratory Effort / Characteristics Non-Labored Spontaneous Respiratory Depth Normal Respiratory Pattern Regular Blood Pressure 88/49 L 122/75 Blood Pressure [Right Arm] Blood Pressure Mean 62 79 Blood Pressure Mean [Right Arm] Blood Pressure Position Sitting Blood Pressure Position [Right Arm] Pulse Oximetry 97 98 Oxygen Delivery Method Room Air Sepsis Recent Fever Within 48 Hours No Sepsis New/Unexplained Change in Mental Status N/A Sepsis Action Taken by Nursing Physician Notified 01/25/25 06:26 01/25/25 06:31 01/25/25 06:46 Temperature Temperature Source Pulse Rate 153 H 157 H 148 H Pulse Rate [Apical] Pulse Rhythm [Apical] Respiratory Rate 20 22 22 Respiratory Effort / Characteristics Respiratory Depth Respiratory Pattern Blood Pressure 100/68 94/74 L 108/87 Blood Pressure [Right Arm] Blood Pressure Mean 82 85 91 Blood Pressure Mean [Right Arm] Blood Pressure Position Blood Pressure Position [Right Arm] Pulse Oximetry 98 96 96 Oxygen Delivery Method Sepsis Recent Fever Within 48 Hours Sepsis New/Unexplained Change in Mental Status Sepsis Action Taken by Nursing 01/25/25 06:51 01/25/25 06:55 01/25/25 07:02 Temperature Temperature Source Pulse Rate 157 H 96 H Pulse Rate [Apical] Pulse Rhythm [Apical] Respiratory Rate 22 22 Respiratory Effort / Characteristics Respiratory Depth Respiratory Pattern Blood Pressure 103/79 75/61 L Blood Pressure [Right Arm] Blood Pressure Mean 85 71 Blood Pressure Mean [Right Arm] Blood Pressure Position Blood Pressure Position [Right Arm] Pulse Oximetry 95 Oxygen Delivery Method Room Air Sepsis Recent Fever Within 48 Hours Sepsis New/Unexplained Change in Mental Status Sepsis Action Taken by Nursing 01/25/25 07:02 01/25/25 07:10 01/25/25 07:25 Temperature Temperature Source Pulse Rate 93 H Pulse Rate [Apical] 105 H 93 H Pulse Rhythm [Apical] Irregular Respiratory Rate 18 18 18 Respiratory Effort / Characteristics Non-Labored Non-Labored Respiratory Depth Normal Normal Respiratory Pattern Blood Pressure 92/66 L Blood Pressure [Right Arm] 93/73 L 105/71 Blood Pressure Mean 75 Blood Pressure Mean [Right Arm] 79 82 Blood Pressure Position Blood Pressure Position [Right Arm] Lying Lying Pulse Oximetry 94 92 95 Oxygen Delivery Method Room Air Room Air Room Air Sepsis Recent Fever Within 48 Hours Sepsis New/Unexplained Change in Mental Status Sepsis Action Taken by [facility] Medications Current Medication List: was personally reviewed by me Laboratory Data Attestation: I reviewed the patient's lab results. 01/25/25 06:17 01/25/25 06:17 Lab Results 01/25/25 Range/Units 06:17 WBC 9.50 (4.8-10.8) K/ul RBC 5.29 (4.20-5.40) M/uL Hgb 14.6 (12.0-16.0) g/dl Hct 45.8 (37.0-47.0) % MCV 86.6 (80.0-100.0) fL MCH 27.6 (25.0-34.0) pg MCHC 31.9 L (32.0-36.0) g/dL RDW Std Deviation 43.1 (36.4-46.3) fL RDW Coeff of Reuben 13.6 (11.5-14.5) % Plt Count 303 (130-400) K/uL MPV 11.5 (9.4-12.4) fL Immature Gran % (Auto) 0.4 % Neut % (Auto) 69.7 % Lymph % (Auto) 18.8 % [place] % (Auto) 10.1 % Eos % (Auto) 0.7 % Baso % (Auto) 0.3 % Neut # (Auto) 6.61 H (1.40-6.50) K/uL Lymph # (Auto) 1.79 (1.20-3.40) K/uL Ul[place] # (Auto) 0.96 H (0.11-0.59) K/uL Eos # (Auto) 0.07 (0.00-0.50) K/uL Baso # (Auto) 0.03 (0.00-0.20) K/uL Immature Gran # (Auto) 0.04 (0.01-0.20) K/uL Sodium 139 (136-145) mmol/L Potassium 4.0 (3.5-5.1) mmol/L Chloride 106 (98-107) mmol/L Carbon Dioxide 26 (21-32) mmol/L Anion Gap 7 (3-11) BUN 22 (6-23) mg/dl Creatinine 0.83 (0.6-1.2) mg/dl Est Cr Clr Drug Dosing 57.4 ml/min eGFR 79.16 BUN/Creatinine Ratio 26.5 H (10-20) Glucose 147 H (70-99(Fasting)) mg/dl Estimat Average Glucose 117 mg/dl Hemoglobin A1c 5.7 H (4.5-5.6) % Calcium 8.8 (8.6-10.3) mg/dl Magnesium 1.9 (1.7-2.4) mg/dl Total Bilirubin 0.4 (0.2-1.0) mg/dl AST 26 (13-39) U/L ALT 37 (7-52) U/L Alkaline Phosphatase 82 (34-104) U/L Troponin I High Sens 2.4 (0-14) pg/ml Total Protein 7.0 (6.0-8.3) gm/dl Albumin 4.2 (3.4-5.0) gm/dl Globulin 2.8 (2.5-4.0) gm/dl Albumin/Globulin Ratio 1.5 (0.9-2) Triglycerides 91 (0-150) mg/dl Cholesterol 179 (0-200) mg/dl LDL Cholesterol, Calc 115 mg/dl VLDL Cholesterol, Calc 18 (0-30) mg/dl HDL Cholesterol 46 mg/dl Cholesterol/HDL Ratio 3.9 (0-5) TSH 4.477 (0.300-4.500) uIu/ml Administered Medications Heparin Sodium/Dextrose (Heparin 62717 Unit/500 Ml D5w) 25,000 units in 500 mls @ 13 mls/hr IV .Q24H [facility]; Protocol Stop: 01/25/25 21:00 Last Admin: 01/25/25 08:55 Dose: 650 units/hr, 13 mls/hr Documented By: NAHUM Co-signed By: BILLIE Discontinued Medications Diltiazem HCl (Diltiazem Hcl 5 Mg/Ml 5 Ml Vial) 10 mg IV NOW STA Stop: 01/25/25 06:30 Last Admin: 01/25/25 06:48 Dose: 10 mg Documented By: ANTONIO Co-signed By: Heparin Sodium/Dextrose (Heparin Iv Adult Wt-Based Low-Dose *No* Initial Bolus Protocol) 1 each IV Q15M [facility]; Protocol Stop: 01/25/25 10:00 Last Admin: 01/25/25 08:47 Dose: Not Given Documented By: NAHUM Sodium Chloride (Nss) 500 mls @ 999 mls/hr IV .Q31M ONE Stop: 01/25/25 06:40 Last Infusion: 01/25/25 07:01 Dose: Infused Documented By: Admin: 01/25/25 06:15 Dose: 999 mls/hr Documented By: ANTONIO Sodium Chloride (Nss) 500 mls @ 999 mls/hr IV .Q31M ONE Stop: 01/25/25 06:59 Last Infusion: 01/25/25 07:25 Dose: Infused Documented By: Admin: 01/25/25 06:43 Dose: 999 mls/hr Documented By: ANTONIO Magnesium Sulfate/Dextrose (Magnesium Sulfate / D5w) 1 gm in 100 mls @ 100 mls/hr IV NOW STA Stop: 01/25/25 07:28 Last Infusion: 01/25/25 07:52 Dose: Infused Documented By: Admin: 01/25/25 06:42 Dose: 100 mls/hr Documented By: ANTONIO Calcium Chloride 500 mg/ (Dextrose) 55 mls @ 240 mls/hr IV NOW STA Stop: 01/25/25 06:42 Last Infusion: 01/25/25 07:25 Dose: Infused Documented By: Admin: 01/25/25 07:01 Dose: 240 mls/hr Documented By: SHERIF Metoprolol Tartrate (Metoprolol Tartrate 1 Mg/Ml Vial) 5 mg IV NOW STA Stop: 01/25/25 08:16 Last Admin: 01/25/25 08:56 Dose: 5 mg Documented By: NAHUM Imaging Data Attestation: I personally reviewed and interpreted this imaging study as follows: My Impression: 1 view chest x-ray was obtained in the emergency department. My interpretation is no free air or definite infiltrate, final report below. Radiologist's Impression: Chest X-Ray 01/25/25 06:10 EXAM: XR chest 1V portable CLINICAL HISTORY: Dysrhythmia. TECHNIQUE: An X-ray image of the chest is obtained in AP projection. COMPARISON: 01/29/2023 X-ray. FINDINGS: Pulmonary Parenchyma: No evidence of consolidation, collapse, or focal opacities. No pulmonary nodules are identified. No evidence of pleural effusion or pleural thickening. Heart and Mediastinum: Apparently prominent cardiac shadow in the AP position. No mediastinal widening or masses. No hilar or mediastinal lymphadenopathy. Bony Thorax: Bony thorax appears intact without fractures or deformities. Soft Tissues: Soft tissues overlying the chest wall are unremarkable. IMPRESSION: 1. No acute pathology. 2. No time interval changes compared to the last study. Electronically signed by Mikhail Cabral 01-25-2025 07:03 AM Discharge Plan Visit Data Chief Complaint: Arrhythmia/Palpitations Stated Complaint: IRREG HE[facility]AT ED Provider: Joshua Hargrove Discharge Problem: Atrial fibrillation with rapid ventricular response, Palpitations, Noncompliance with medication regimen Patient Disposition: Admitted As Inpatient Discharge Instructions Interventions: ED Discharge Assessment Last Done: 01/25/25 08:02
[2025-01-25] MEDS: MAGNESIUM SULFATE / D5W 1 GM/100 ML BAG IV STA (06:42)
[2025-01-25] MEDS: dilTIAZem HCl 5 MG/ML 5 ML VIAL IV STA (06:48)
[2025-01-25 06:53] LABS: Albumin Globulin Ratio 1.5 (0.9-2); Albumin Level 4.2 gm/dl (3.4-5.0); BUN Creatinine Ratio 26.5 (10-20); Bilirubin,Total 0.4 mg/dl (0.2-1.0); Calcium 8.8 mg/dl (8.6-10.3); Creatinine Clr Calc Pharmacy 57.4 ml/min; Globulin 2.8 gm/dl (2.5-4.0); Magnesium 1.9 mg/dl (1.7-2.4)
[2025-01-25 07:00] LABS: Troponin I High Sensitivity 2.4 pg/ml (0-14)
[2025-01-25] MEDS: CALCIUM CHLORIDE 10% 500 MG in DEXTROSE 5% 50 ML IV STA (07:01)
--- NOTE | 2025-01-25 07:03 | XRay Report ---
EXAM: XR chest 1V portable CLINICAL HISTORY: Dysrhythmia. TECHNIQUE: An X-ray image of the chest is obtained in AP projection. COMPARISON: 01/29/2023 X-ray. FINDINGS: Pulmonary Parenchyma: No evidence of consolidation, collapse, or focal opacities. No pulmonary nodules are identified. No evidence of pleural effusion or pleural thickening. Heart and Mediastinum: Apparently prominent cardiac shadow in the AP position. No mediastinal widening or masses. No hilar or mediastinal lymphadenopathy. Bony Thorax: Bony thorax appears intact without fractures or deformities. Soft Tissues: Soft tissues overlying the chest wall are unremarkable. IMPRESSION: 1. No acute pathology. 2. No time interval changes compared to the last study. Electronically signed by Mikhail Cabral 01-25-2025 07:03 AM
[2025-01-25 07:09] LABS: Thyroid Stimulating Hormone 4.477 uIu/ml (0.300-4.500)
[2025-01-25] MEDS ORDERED: METOPROLOL TARTRATE 1 MG/ML VIAL IV PRN (08:15)
[2025-01-25] MEDS ORDERED: ACETAMINOPHEN 325 MG TAB PO PRN (08:24)
[2025-01-25] MEDS ORDERED: POLYETHYLENE (MIRALAX) 17 GM PACK PO PRN (08:24)
[2025-01-25] MEDS: Heparin IV Adult Wt-Based Low-Dose *NO* INITIAL Bolus Protocol IV SCH (08:47)
--- NOTE | 2025-01-25 08:49 | Cardiology Consultation ---
Date of Consultation January 25, 2025 Assessment & Plan (1) Atrial fibrillation with rapid ventricular response: Plan Assessment: 64 year old female with prior history of P. A-fib, presents with several hours of palpitations and feeling poorly, found to be in Atrial fibrilliation with RVR. Plan: 1. A. fib with RVR: -Known history, but has not been compliant with her medication in several months. Denies any known precipitating factors such as stress, new medications, or acute illness. -Rates remain elevated, minimal response with IV Lopressor, but limited as patient has been hypotensive since arrival with pressures 70's systolic. They are starting to improve. -Euvolemic on exam -discussed recommendation to pursue a cardioversion, but because patient has not been compliant on anticoagultion therapy, discussed the need to perform a trans-esophageal echocardiogram prior to proceeding with cardioversion to ensure no left atrial thrombus. patient and family member verbalize understanding and are in agreement to proceed. -Keep patient NPO and I will contact Dr. Alcala to make arrangements to proceed with CATHI and DCCV. Will need to obtain written consent. -Please keep heparin gtt on at this time. Case has been discussed with Dr. Alcala. Further recommendations regarding plan of care as per his assessment. I spent a total of 40 minutes on the date of service in preparation, delivery, documentation of the care provided to the patient excluding any time spent in the performance of separately billed services. BETZAIDA Uriostegui [facility] Supervising Physician Co-Signing Physician Notes Attending attestation: Case reviewed with the advanced practitioner. I have personally performed a history and physical examination on the patient. I have reviewed the advanced practitioner's documentation on the date of service referenced in note, and I agree with, and take responsibility for the plan of care. Subjective: Patient with recurrent atrial fibrillation with rapid ventricular response. She describes onset of racing heart rate at just after 3 AM that woke her up from sleep. She has had occasional episodes of fast heartbeat that have only lasted seconds on and off again at least once per month. In November,, she went back on metoprolol and Eliquis but only took it for about a month prior to discontinuing both medications due to fatigue. She therefore has not been anticoagulated. Exam: Cardiovascular irregular rhythm, tachycardic, no murmurs, no edema Neurologic: No focal deficits Data: EKG on arrival revealed atrial fibrillation with rapid ventricular response. Echocardiogram reveals hyperdynamic left ventricular systolic function LVEF greater than 70%, no significant valve disease. Impression/ Plan: Recurrent highly symptomatic atrial fibrillation with rapid ventricular spots Medication intolerance, with history suggesting profound fatigue on metoprolol. -Continue heparin for stroke prophylaxis. There is no Xa level on the chart at present, and this will be drawn per usual protocol. -Treatment options discussed with patient, spouse and daughter at bedside. Patient agreeable to undergoing repeat transesophageal echocardiogram guided direct-current cardioversion. I feel that the direct-current cardioversion is indicated as she has had brief episodes preceding this more extended episode. -Informed consent for CATHI cardioversion was obtained. The patient has been n.p.o. since last evening with her meal at 7:30 PM. -Future considerations include diltiazem plus Eliquis and referral to electrophysiology for consideration of PVI. I spent a total of 20 minutes coordinating, documenting, and providing care for this patient excluding time spent in the performance of separately billed services or time spent by another provider. Eleno Alcala DO History of Present Illness Reason for Consultation: A-fib Requesting Physician: Ilir kohli Attending Physician: Slava Weaver MD History of Present Illness HPI: Patient is a 64 year old female with PMHx of P. A-fib diagnosed in December 2022 requiring CATHI/DCCV that presents to the ER for evaluation of Palpitations. patient has not been seen in the [facility] cardiology office since October 2023. Per review of ER note, patient has not been compliant with her Eliquis or her metoprolol. Upon seeing patient today, she is resting in bed, but states she continues to feel "off", endorses palpitations. Heart rates currently in the 120's A-fib. Prior to my arrival, patient had heart rates as high as 180bpm and recieved 5mg IV lopressor. her Blood pressure is stable at this time. When asked why she stopped her medications, she states "i just didn't like the way they made me feel and I was tired" Denies chest pain, pressure, near syncope, syncope or edema. No shortness of breath EKG on admission shows A-fib with RVR rate 168bpm Chest xray negative TSH high end of normal 4.47 Allergies Allergy/AdvReac Type Severity Reaction Status Date / Time No Known Allergies Allergy Unverified 04/28/15 19:38 Home Medications Medication Instructions Recorded Confirmed Type apixaban 5 mg tablet (Eliquis) 5 mg PO UD 01/25/25 01/25/25 History metoprolol tartrate 25 mg tablet 25 mg PO UD 01/25/25 01/25/25 History Patient History Medical History (Updated 01/25/25 @ 11:54 by Elgin Funes MD) Atrial fibrillation with rapid ventricular response Precordial chest pain Hypomagnesemia Anemia Mild mitral regurgitation Bartholin's gland abscess S/p molar removal Surgical History History of hand surgery Left 5th digit tendon laceration s/p repair History of tonsillectomy History of appendectomy age 11 Family History Mother Cancer Father Myocardial infarction Atrial fibrillation Heart disease Hypertension Coronary heart disease Brother Atrial fibrillation Brother Hypertrophic cardiomyopathy Atrial fibrillation Brother Atrial fibrillation Social History Smoking Status: Never smoker Second Hand Exposure: No; Do You Dip or Chew Tobacco: No; Hx Alcohol Use: No Hx Substance Use: No Preferred Language: Dominican Communication Ability: Effective Hammerer Required: No Beliefs That Will Affect Care: None Current Living Situation: Spouse Other Information That Helps Us Care for You: No Feels Safe at Home: Yes Safety Concerns: Feels Safe At This Time Assistive Devices: None Review of Systems Review of Systems: All systems reviewed & are unremarkable except as noted in HPI & below Physical Exam Constitutional: well developed and well nourished; no acute distress and not ill appearing Neck: normal visual inspection and trachea midline Cardiovascular: Rate/Rhythm: + tachycardic and + irregularly irregular Heart Sounds: normal S1 and normal S2; no murmur Vessels: dorsalis pedis pulses present; no JVD Extremities: no edema Skin: no rashes, warm and dry Psychiatric: A+Ox3, euthymic affect Results & Data Vital Signs (Past 12 Hours) Vital Signs Temp Pulse Pulse Resp BP BP Pulse Ox 01/25/25 08:24 36.7 C 138 H 16 78/56 L 95 01/25/25 08:24 01/25/25 08:02 125 H 18 111/77 95 01/25/25 07:25 93 H 18 105/71 95 01/25/25 07:10 93 H 18 92/66 L 92 01/25/25 07:02 105 H 18 93/73 L 94 01/25/25 07:02 01/25/25 06:55 96 H 22 75/61 L 01/25/25 06:51 157 H 22 103/79 95 01/25/25 06:46 148 H 22 108/87 96 01/25/25 06:31 157 H 22 94/74 L 96 01/25/25 06:26 153 H 20 100/68 98 01/25/25 06:15 168 H 20 122/75 98 01/25/25 06:13 174 H 01/25/25 06:06 36.5 C 166 H 18 88/49 L 97 Pulse Ox O2 Del Method O2 Del Method 01/25/25 08:24 Room Air 01/25/25 08:24 95 Room Air 01/25/25 08:02 Room Air 01/25/25 07:25 Room Air 01/25/25 07:10 Room Air 01/25/25 07:02 Room Air 01/25/25 07:02 Room Air 01/25/25 06:55 01/25/25 06:51 01/25/25 06:46 01/25/25 06:31 01/25/25 06:26 01/25/25 06:15 01/25/25 06:13 01/25/25 06:06 Room Air Laboratory Results Cardiac Enzymes 01/25/25 Range/Units 06:17 AST 26 (13-39) U/L Troponin I High Sens 2.4 (0-14) pg/ml CBC 01/25/25 Range/Units 06:17 WBC 9.50 (4.8-10.8) K/ul RBC 5.29 (4.20-5.40) M/uL Hgb 14.6 (12.0-16.0) g/dl Hct 45.8 (37.0-47.0) % Plt Count 303 (130-400) K/uL Neut # (Auto) 6.61 H (1.40-6.50) K/uL Lymph # (Auto) 1.79 (1.20-3.40) K/uL [place] # (Auto) 0.96 H (0.11-0.59) K/uL Eos # (Auto) 0.07 (0.00-0.50) K/uL Baso # (Auto) 0.03 (0.00-0.20) K/uL Comprehensive Metabolic Panel 01/25/25 Range/Units 06:17 Sodium 139 (136-145) mmol/L Potassium 4.0 (3.5-5.1) mmol/L Chloride 106 (98-107) mmol/L Carbon Dioxide 26 (21-32) mmol/L BUN 22 (6-23) mg/dl Creatinine 0.83 (0.6-1.2) mg/dl Glucose 147 H (70-99(Fasting)) mg/dl Calcium 8.8 (8.6-10.3) mg/dl AST 26 (13-39) U/L ALT 37 (7-52) U/L Alkaline Phosphatase 82 (34-104) U/L Total Protein 7.0 (6.0-8.3) gm/dl Albumin 4.2 (3.4-5.0) gm/dl Intake and Output 01/24/25 01/25/25 01/25/25 22:59 06:59 14:59 Intake Total 1155 / 1155 Balance 1155 / 1155 Intake: IV 1155 / 1155 Calcium Chloride 10% 500 mg In 55 / 55 Dextrose 5% 50 ml @ 240 mls/hr IV NOW STA Rx#:[id number] Magnesium Sulfate / D5w 1 gm In 100 / 100 100 ml @ 100 mls/hr IV NOW STA Rx#:[id number] Sodium Chloride 0.9% 500 ml @ 500 / 500 999 mls/hr IV .Q31M ONE Rx#: [id number] Sodium Chloride 0.9% 500 ml @ 500 / 500 999 mls/hr IV .Q31M ONE Rx#: [id number] Other: Weight 61.3 kg 61 kg Weight Measurement Method Chair Scale Built in [facility] Patient Weight 01/26/25 06:59 Weight 61 kg
[2025-01-25] MEDS: HEPARIN 25000 UNIT/500 ML D5W 25,000 UNITS/500 ML BAG IV SCH (08:55)
[2025-01-25] MEDS: METOPROLOL TARTRATE 1 MG/ML VIAL IV STA (08:56)
--- NOTE | 2025-01-25 09:57 | History & Physical Report ---
Date of Service January 25, 2025 Assessment & Plan (1) Palpitations: (2) Prediabetes: Plan 64 year old female with PMH significant for atrial fibrillation (diagnosed in December 2022 and required CATHI cardioversion) and osteoarthritis who presented to the ED this morning in atrial fibrillation with RVR. Patient has been noncompliant with her medications and has not taken Eliquis or metoprolol for awhile. Work up is reassuring thus far against electrolyte abnormalities, thyroid dysfunction, pulmonary embolism, DVT, or infection. Atrial fibrillation with RVR Palpitations Patient is hemodynamically unstable with hypotension but maintains appropriate mentation and perfusion Received 10mg diltiazem IVP in the ED and 5mg metoprolol IVP when she arrived to the unit Low dose heparin drip for anticoagulation and PRN metoprolol IVP for tachycardia Monitor BPs closely, monitor electrolytes and replete as needed NPO for possible cardioversion Cardiology consult: plan for cardioversion today at 1300 Prediabetes Fasting glucose 147, HgbA1C 5.7 Low carb diet when no longer NPO DVT Prophylaxis: Heparin drip Code Status: FULL CODE - As per discussion at bedside with the patient. PCP: Dr. Fabián Ramírez III, MD Disposition: PCU/telemetry Patient seen in collaboration with Dr. Weaver. Please see addendum. I spent a total of 70 minutes coordinating, documenting and providing care for this patient excluding time spent in the performance of separately billed services or time spent by another provider/QHP. Admission and Anticipated Discharge Date Admission Date: January 25, 2025 History of Present Illness Chief Complaint: Palpitations Primary Care Provider: Fabián Ramírez MD 64 year old female with PMH significant for atrial fibrillation (diagnosed in December 2022 and required CATHI cardioversion) and osteoarthritis who presented to the ED this morning for heart palpitations. She states that at around 0300 she woke up and felt heart palpitations. She is prescribed metoprolol and eliquis for her A fib but has not taken them for awhile because they make her extremely drowsy. She states that she can barely get through her day and then falls asleep in a chair as soon as she gets home from work. She does not take any medications on a regular basis. She feels as though she is in good health and denies any recent illness, cough, cold symptoms, fevers, chills, dizziness, lightheadedness, abdominal pain, N/V/D, myalgia, edema, calf tenderness. She denies chest pain. She had some SOB while walking into the ED from the car but denies SOB at rest. Upon arrival to the ED, she had an EKG that revealed atrial fibrillation at 168bpm. Her blood pressure was 88/49 on arrival. She had a CXR with no abnormalities and labs including a CBC, CMP, mag, and TSH that were largely unremarkable aside from a glucose of 147, mag 1.9, calcium 8.8. She received two NS boluses, IV mag and calcium repletion, and was given diltiazem 10mg IVP which decreased her heart rate for approximately one hour. Her blood pressures continued to be low with multiple readings 70s/50-60s. Allergies Allergy/AdvReac Type Severity Reaction Status Date / Time No Known Allergies Allergy Unverified 04/28/15 19:38 Home Medications Medication Instructions Recorded Confirmed Type apixaban 5 mg tablet (Eliquis) 5 mg PO UD 01/25/25 01/25/25 History metoprolol tartrate 25 mg tablet 25 mg PO UD 01/25/25 01/25/25 History Past Med/Surg History Problem List (Updated 01/25/25 @ 15:00 by Joshua Hargrove DO) Noncompliance with medication regimen (Acute) Atrial fibrillation with rapid ventricular response (Acute) New onset a-fib Encounter for pre-operative examination Prediabetes Palpitations (Acute) Medical History (Updated 01/25/25 @ 15:00 by Joshua Hargrove DO) Atrial fibrillation with rapid ventricular response Precordial chest pain Hypomagnesemia Anemia Mild mitral regurgitation Bartholin's gland abscess S/p molar removal Surgical History History of hand surgery Left 5th digit tendon laceration s/p repair History of tonsillectomy History of appendectomy age 11 Family History Mother Cancer Father Myocardial infarction Atrial fibrillation Heart disease Hypertension Coronary heart disease Brother Atrial fibrillation Brother Hypertrophic cardiomyopathy Atrial fibrillation Brother Atrial fibrillation Social History Smoking Status: Never smoker Second Hand Exposure: No; Do You Dip or Chew Tobacco: No; Hx Alcohol Use: No Hx Substance Use: No Preferred Language: Kenyan Communication Ability: Effective Continuous Vulcanizing Machine Operator Required: No Beliefs That Will Affect Care: None Current Living Situation: Spouse Other Information That Helps Us Care for You: No Feels Safe at Home: Yes Safety Concerns: Feels Safe At This Time Assistive Devices: None Review of Systems Review of Systems: All systems reviewed & are unremarkable except as noted in HPI & below Physical Exam Physical Exam: VITALS: Reviewed. Tachycardic and hypotensive. GEN: Well-developed, female, NAD. PSYCH: Good Judgment. AOx3. Normal memory, mood, and affect. HEENT: Head NC/AT. Sclera white and conjunctiva pink. Nares without rhinorrhea. Nasal and oral mucosa pink. NECK: Supple, with no masses. CV: Irregular and tachycardic rate, no m/r/g. LUNGS: CTAB, no w/r/c. ABD: Soft, NT/ND, NBS, no masses or organomegaly. SKIN: Warm, well perfused. No skin rashes or abnormal lesions. MSK: No deformities, Normal gait. EXT: No clubbing, cyanosis, or edema. NEURO: Ambulating with no limitations. Normal muscle strength and tone. No focal deficits. Results & Data Results & Data Vital Signs (Past 12 Hours) Vital Signs Temp Pulse Pulse Resp BP BP Pulse Ox 01/25/25 09:10 127 H 01/25/25 08:56 138 H 78/56 L 01/25/25 08:24 36.7 C 138 H 16 78/56 L 95 01/25/25 08:24 01/25/25 08:02 125 H 18 111/77 95 01/25/25 07:25 93 H 18 105/71 95 01/25/25 07:10 93 H 18 92/66 L 92 01/25/25 07:02 105 H 18 93/73 L 94 01/25/25 07:02 01/25/25 06:55 96 H 22 75/61 L 01/25/25 06:51 157 H 22 103/79 95 01/25/25 06:46 148 H 22 108/87 96 01/25/25 06:31 157 H 22 94/74 L 96 01/25/25 06:26 153 H 20 100/68 98 01/25/25 06:15 168 H 20 122/75 98 01/25/25 06:13 174 H 01/25/25 06:06 36.5 C 166 H 18 88/49 L 97 Pulse Ox O2 Del Method O2 Del Method 01/25/25 09:10 01/25/25 08:56 01/25/25 08:24 Room Air 01/25/25 08:24 95 Room Air 01/25/25 08:02 Room Air 01/25/25 07:25 Room Air 01/25/25 07:10 Room Air 01/25/25 07:02 Room Air 01/25/25 07:02 Room Air 01/25/25 06:55 01/25/25 06:51 01/25/25 06:46 01/25/25 06:31 01/25/25 06:26 01/25/25 06:15 01/25/25 06:13 01/25/25 06:06 Room Air Laboratory Results Short CBC 01/25/25 Range/Units 06:17 WBC 9.50 (4.8-10.8) K/ul Hgb 14.6 (12.0-16.0) g/dl Hct 45.8 (37.0-47.0) % Plt Count 303 (130-400) K/uL BMP 01/25/25 06:17 Sodium 139 Potassium 4.0 Chloride 106 Carbon Dioxide 26 BUN 22 Creatinine 0.83 Glucose 147 H Calcium 8.8 Liver Function 01/25/25 Range/Units 06:17 Total Bilirubin 0.4 (0.2-1.0) mg/dl AST 26 (13-39) U/L ALT 37 (7-52) U/L Alkaline Phosphatase 82 (34-104) U/L Albumin 4.2 (3.4-5.0) gm/dl I have independently reviewed and interpreted patient's admitting labs including CBC, CMP, mag and TSH. Diagnostic Findings Chest X-Ray 01/25/25 06:10 EXAM: XR chest 1V portable CLINICAL HISTORY: Dysrhythmia. TECHNIQUE: An X-ray image of the chest is obtained in AP projection. COMPARISON: 01/29/2023 X-ray. FINDINGS: Pulmonary Parenchyma: No evidence of consolidation, collapse, or focal opacities. No pulmonary nodules are identified. No evidence of pleural effusion or pleural thickening. Heart and Mediastinum: Apparently prominent cardiac shadow in the AP position. No mediastinal widening or masses. No hilar or mediastinal lymphadenopathy. Bony Thorax: Bony thorax appears intact without fractures or deformities. Soft Tissues: Soft tissues overlying the chest wall are unremarkable. IMPRESSION: 1. No acute pathology. 2. No time interval changes compared to the last study. Electronically signed by Misha Mikhail 01-25-2025 07:03 AM ECG Additional Comments: I have independently reviewed and interpreted patient's admitting EKG which revealed atrial fibrillation with RVR at a rate of 168bpm Code Status & VTE Plan Code Status Full code VTE Prophylaxis Plan VTE Prophylaxis will be ordered: Yes Supervising Physician Co-Signing Physician Notes Patient seen and examined at bedside. and daughter present. Patient states she noticed her heart was beating fast last night and would not go away. Not overly uncomfortable. Denies chest pain associated with symptoms. Stopped taking blood thinner and metoprolol at home because she didnt like how it made her feel. On exam, irregular rate and rhythm noted. Hypotensive. Given metoprolol IV x1 given low BP with significant tachycardia, with improvement in pressures and rate. Placed on heparin drip. Appreciate cardiology consult, cardioversion, and med recommendations in setting of patient stopping atrial fibrillation medications. I have seen and discussed the case with the collaborating advanced practitioner. I agree with the above H&P. I have reviewed and confirmed the patients medical history, the findings on physical examination, and the patients diagnosis and treatment plan with Daisy HUSTON and agree with the information documented. I spent a total of 20 minutes coordinating, documenting, and providing care for this patient excluding time spent in the performance of separately billed services. All of the aforementioned completed outside of collaborating with the assigned advanced practitioner for a full treatment plan. I have reviewed the advanced practitioner's documentation, and I agree with, and take responsibility for the plan of care
--- OUTSIDE RECORDS SUMMARY | 2025-01-25 11:07 | External Medical Summary | Summary of Care ---
Author Name Unknown Organization [facility] Address [address] [facility] [place] [address] Phone [phone] Care Team Providers Care Press Hand Supervisor Name Role Phone Darrell CASTELLON MD, Fabián Molina Primary Care Provider [phone] Reason for Visit * Reason Onset Date Comments Medication Refill 11/24/2024 Encounter Details Date Type Department Care Team (Late st Contact Info) Description 11/24/2024 Refill Cardiology, [facility] [address] [place] [address] Eladia Toledo PA-C [address] [place] [address] Allergies No known active allergiesdocumented as of this encounter (statuses as of 11/25/2024) Medications MAGNESIUM 250 MG PO TABS 1 tab daily Active Lysine 500 MG Oral Tablet Take 1 Tablet by mouth every evening. 30 Tablet 3 Active Vitamin B-12 1000 MCG Oral Tablet (Cyanocobalamin ) Take 1 Tablet by mouth in the morning. 30 Tablet 3 Active Albendazole 200 MG Oral Tablet (Albenza) 2 tabs in am Repeat 2 weeks 4 Tablet 4 Active Metoprolol Succinate ER 25 MG Oral Tablet Extended Release 24 Hour (toPROL XL) Take 1 Tablet by mouth in the morning. 90 Tablet 1 5 Active Metoprolol Succinate ER 25 MG Oral Tablet Extended Release 24 Hour (toPROL XL) Take 1 Tablet by mouth in the morning. 30 Tablet 5 4 11/24/19 25 Discontinu ed(Refill) documented as of this encounter (statuses as of 11/25/2024) Active Problems Problem Noted Date Diagnosed Date Paroxysmal atrial fibrillation 02/16/2024 Atrial fibrillation 02/04/2023 Nasal trauma 01/05/2017 Generalized osteoarthritis 10/15/2014 documented as of this encounter (statuses as of 11/25/2024) Immunizations Name Administration Dates Next Due PPD 02/11/2016,10/30/2014 TDAP (age 10 and older)(Boostrix) 02/16/2024, documented as of this encounter Social History Tobacco Use Types Packs/Day Years Used Date Smoking Tobacco: Never Smokeless Tobacco: Never Alcohol Use Standard Drinks/Week Comments Yes 0 (1 standard drink = 0.6 oz pur e alcohol) Rare Utilities Answer Date Recorded Do you have trouble paying y our heating, water, or electric bill? (Adult - for ages 18 years and over) Not on file 04/18/2024 Is your family able to pay t he heat, water, or electric bill? (Household - for ages 0-17 years) Not on file 04/18/2024 Does your family have access to good internet? (Household - for ages 0-17 years) Not on file 04/18/2024 Social Connections Answer Date Recorded How often do you feel lonely or isolated from those around you? (Adult - for ages 18 years and over) Not on file 04/18/2024 Comments No Sex and Gender Information Value Date Recorded Sex Assigned at Not on file Legal Sex Female 1:47 PM EDT Gender Identity Not on file Sexual Orientation Not on file documented as of this encounter Miscellaneous Notes * Telephone Encounter - Kal Daniel, [facility] - 11/25/2024 12:30 PM EST Signed Prescriptions: Disp Refills Metoprolol Succinate ER 25 MG Oral Tablet *90 Tab*1 Sig: Take 1 Tablet by mouth in the morning.Authorizing Provider: ELADIA TOLEDO User: KAL DANIEL * Telephone Encounter - Cee Ruiz, tanker truck driver - 11/24/2024 2:36 PM EST Patient was agreeable, transferred to scheduling. Pending Prescriptions: Disp Refills Metoprolol Succinate ER 25 MG Oral Tablet*30 Tab*5 Sig: Take 1 Tablet by mouth in the morning. Last Visit: 10/26/2023 (in office), Visit date not found (telemedicine) Next Visit: Visit date not found If no future appointments scheduled, and last appointment is greater than a year ago, please schedule patient for a follow-up appointment Last date the medication was ordered: 2023 Pharmacy: [id number] [address] [facility] Is this request for a controlled substance?No it is not controlled. Urine Drug Screen:No results found for this or any previous visit. Patient Phone Numbers Labs: Lab Results Component Value Date/Time CREAT 0.55 02/10/2024 12:00 AM CREAT 0.7 08/22/2014 08:25 AM POTASSIUM 4.3 02/10/2024 12:00 AM POTASSIUM 4.6 08/22/2014 08:25 AM TSH 0.79 10/30/2014 11:14 AM LDL 108 08/22/2014 08:25 AM ALT 28 08/22/2014 08:25 AM documented in this encounter Plan of Treatment Upcoming Encounters Date Type Department Care Team (Late st Contact Info) Description 04/04/2025 9:00 AM EDT Office Visit Cardiology, [facility] [address] [facility] [place] [address] Rosa Johnson PA-C [address] [place] [address] [place] [address] Health Maintenance Due Date Last Done Comments HIV Screening 1976 Hepatitis C Screening 1979 Pap Smear 1982 Cervical Cancer Screening 1991 HPV/Co-Test 1991 Mammogram 2001 Cologuard 2006 Colonoscopy 2006 Colorectal Cancer Screening 2006 Fecal Occult Blood Test 2006 Sigmoidoscopy 2006 Pneumococcal Vaccine: 50+ Years (1 of 1 - PCV) 2011 Zoster Vaccines (1 of 2) 2011 Depression Screening 02/10/2017 02/11/2016 Lipid Panel 08/22/2019 08/22/2014 COVID-19 Vaccine ( - 2023-2 5 season) 2024 Influenza Vaccine (FLU shot) (#1) 2024 DTap/Tdap Vaccines (3 - Td o r Tdap) 02/15/2034 02/16/2024, 06/15/2013 HPV (Gardasil) Vaccine Aged Out No lo nger eligible based on patient's age to complete this topic Hepatitis B Vaccine Aged Out No longe r eligible based on patient's age to complete this topic MENINGOCOCCAL (MENACTRA/MENVEO) Aged Out No longer eligible b ased on patient's age to complete this topic documented as of this encounter Medical Devices Not on filedocumented as of this encounter Care Teams Press Hand Supervisor Relationship Specialty Start Date End Date Fabián Ramírez III, MD PCP - General Family Medicine 02/11/16 documented as of this encounter
--- OUTSIDE RECORDS SUMMARY | 2025-01-25 11:08 | External Medical Summary | Summary of Care ---
Author Name Unknown Organization [facility] Address [address] [facility] [place] [address] Phone [phone] Care Team Providers Care Supervisor Grinding Name Role Phone Darrell CASTELLON MD, Fabián Molina Primary Care Provider [phone] Reason for Visit * Reason Onset Date Comments Advice 11/24/2024 Encounter Details Date Type Department Care Team (Late st Contact Info) Description 11/24/2024 Telephone Cardiology, [facility] [address] [place] [address] Eleno Alcala, [address] [place] [address] Advice Allergies No known active allergiesdocumented as of this encounter (statuses as of 11/24/2024) Medications MAGNESIUM 250 MG PO TABS 1 tab daily Active Lysine 500 MG Oral Tablet Take 1 Tablet by mouth every evening. 30 Tablet 3 Active Vitamin B-12 1000 MCG Oral Tablet (Cyanocobalamin ) Take 1 Tablet by mouth in the morning. 30 Tablet 3 Active Metoprolol Succinate ER 25 MG Oral Tablet Extended Release 24 Hour (toPROL XL) Take 1 Tablet by mouth in the morning. 30 Tablet 5 4 Active Albendazole 200 MG Oral Tablet (Albenza) 2 tabs in am Repeat 2 weeks 4 Tablet 4 Active Eliquis 5 MG Oral Tablet (Apixaban) take 1 tablet by mouth every morning and BEFORE BEDTIME 60 Tablet 2 03/11/24/19 25 Discontinu ed(Refill) documented as of this encounter (statuses as of 11/24/2024) Active Problems Problem Noted Date Diagnosed Date Paroxysmal atrial fibrillation 02/16/2024 Atrial fibrillation 02/04/2023 Nasal trauma 01/05/2017 Generalized osteoarthritis 10/15/2014 documented as of this encounter (statuses as of 11/24/2024) Immunizations Name Administration Dates Next Due PPD [...] encounter Miscellaneous Notes * Telephone Encounter - Xochitl Arvizu LPN - 11/24/2024 3:06 PM EST Being addressed in other encounter * Telephone Encounter - Swati Rubio OSA - 11/24/2024 2:48 PM EST Person calling: Jessi Relationship to patient: self Phone/Fax to return call: [phone] Reason for call(brief): Medication refills Pharmacy: [facility] Provider Name: Dr Alcala Detailed message to office: pt has a cardio appt sched and would like her Metoprolol and Eliquis refilled - thank you documented in this encounter Plan of Treatment Upcoming Encounters Date Type Department Care Team (Late st Contact Info) Description 04/04/2025 9:00 AM EDT Office Visit Cardiology, [facility] [address] [facility] [place] [address] Rosa Johnson PA-C [address] [place] [address] Health Maintenance Due Date Last Done [...] filedocumented as of this encounter Care Teams Supervisor Grinding Relationship Specialty Start Date End Date Fabián Ramírez III, MD PCP - General Family Medicine 02/11/16 documented as of this encounter
--- OUTSIDE RECORDS SUMMARY | 2025-01-25 11:08 | External Medical Summary | Summary of Care ---
Author Name Unknown Organization [facility] Address [address] [place] [address] Phone [phone] Care Team Providers Care Watch Adjuster Name Role Phone Darrell CASTELLON MD, John E Primary Care Provider [phone] Reason for Visit * Reason Onset Date Comments Medication Refill 11/24/2024 Encounter Details Date Type Department Care Team (Late st Contact Info) Description 11/24/2024 Refill Family Practice [facility] [address] [facility] [place] [address] Autumn Best III, MD [address] [facility] [address] Allergies No known active allergiesdocumented as of [...] Repeat 2 weeks 4 Tablet 4 Active Apixaban 5 MG Oral Tablet (Eliquis) take 1 tablet by mouth every morning and BEFORE BEDTIME, 180 Tablet 1 5 Active Eliquis 5 MG Oral Tablet (Apixaban) take 1 tablet by mouth every morning and BEFORE BEDTIME 60 Tablet 2 4 11/24/19 25 Discontinu ed(Refill) documented as [...] encounter Miscellaneous Notes * Telephone Encounter - Yuko Egan [facility] - 11/24/2024 3:16 PM ESTSigned Prescriptions: Disp Refills Apixaban 5 MG Oral Tablet (Eliquis) 180 Ta*1 Sig: take 1 tablet by mouth every morning and BEFORE BEDTIME, Authorizing Provider: AUTUMN BEST III Ordering User: YUKO EGAN * Telephone Encounter - Meryl Holguin CPhT - 11/24/2024 2:32 PM EST Did you pend patient's preferred pharmacy and medication before forwarding?yes Pharmacy: [id number] [address] [facility] Pending Prescriptions: Disp Refills Apixaban 5 MG Oral Tablet (Eliquis) 60 Tab*2 Sig: take 1 tablet by mouth every morning and BEFORE BEDTIME, Last Visit: 02/16/2024 (in office), Visit date not found (telemedicine) Next Visit: Visit date not found If no future appointments scheduled, and last appointment is greater than a year ago, please schedule patient for a follow-up appointment Last date the medication was ordered: [id number] Is this request for a controlled substance?no Urine Drug Screen:No results found for this [...] 04/04/2025 9:00 AM EDT Office Visit Cardiology, [facility] [address] [facility] [place] [address] Rosa Johnson PA-C [address] [place] [address] [place] [address] Health Maintenance Due Date [...] 02/11/2016 Lipid Panel 08/22/2019 08/22/2014 COVID-19 Vaccine (1 - 2023-2 5 season) 2024 Influenza Vaccine [...] filedocumented as of this encounter Care Teams Watch Adjuster Relationship Specialty Start Date End Date Autumn Best III, MD PCP - General Family Medicine 02/11/16 documented as of this encounter
[2025-01-25 11:40] LABS: Chol HDL Ratio 3.9 (0-5)
--- NOTE | 2025-01-25 11:55 | Anesthesiology Consultation ---
Date of Service January 25, 2025 Assessment & Plan (1) Encounter for pre-operative examination: History Surgery Operation Date: 01/25/25 13:00 Proposed Procedures p Transesophageal Echo - Eleno Alcala DO s Cardioversion Wage Adjuster w/Anesthesia - Eleno Alcala DO Height/Weight Height: 5 ft 3 in Weight: 61 kg Allergies Allergy/AdvReac Type Severity Reaction Status Date / Time No Known Allergies Allergy Unverified 04/28/15 19:38 Medications Home Medications Medication Instructions Recorded Confirmed Last Taken apixaban 5 mg tablet (Eliquis) 5 mg PO UD 01/25/25 01/25/25 Unknown metoprolol tartrate 25 mg tablet 25 mg PO UD 01/25/25 01/25/25 Unknown Active Medications Generic Name Dose Route Start Last Admin Trade Name Freq PRN Reason Stop Dose Admin Heparin Sodium/Dextrose 25,000 units in 500 mls @ 13 mls/hr 01/25/25 08:00 01/25/25 08:55 Heparin 12390 Unit/500 Ml D5w IV 02/24/25 07:59 650 units/hr .Q24H CHATO 13 mls/hr Administration Protocol 650 UNITS/HR Past Medical History Medical History (Updated 01/25/25 @ 11:54 by Elgin Funes MD) Atrial fibrillation with rapid ventricular response Precordial chest pain Hypomagnesemia Anemia Mild mitral regurgitation Bartholin's gland abscess S/p molar removal Past Family History Family History Mother Cancer Father Myocardial infarction Atrial fibrillation Heart disease Hypertension Coronary heart disease Brother Atrial fibrillation Brother Hypertrophic cardiomyopathy Atrial fibrillation Brother Atrial fibrillation Past Surgical History Surgical History History of hand surgery Left 5th digit tendon laceration s/p repair History of tonsillectomy History of appendectomy age 11 Social History Smoking Status: Never smoker Do You Dip or Chew Tobacco: No Hx Alcohol Use: No Hx Substance Use: No substance use type: does not use Physical Exam Vital Signs Last Vital Signs Temp 36.8 C 01/25/25 11:30 Pulse 126 H 01/25/25 11:30 Resp 18 01/25/25 11:30 BP 109/68 01/25/25 11:30 Pulse Ox 95 01/25/25 11:30 O2 Del Method Room Air 01/25/25 11:30 Testing Laboratory Results 01/25/25 06:17 01/25/25 06:17 Electrocardiogram Date: 01/25/25 Findings: + AFIB @ (168) Echocardiogram Date: 01/25/25 EF: 70% LV Function: normal Valvular Disease: + no significant valvular disease
--- NOTE | 2025-01-25 12:25 | Electrocardiogram Report ---
Test Reason : Blood Pressure : */* mmHG Vent. Rate : 168 BPM Atrial Rate : * BPM P-R Int : * ms QRS Dur : 72 ms QT Int : 266 ms P-R-T Axes : * 26 23 degrees QTcB Int : 444 ms Atrial fibrillation with rapid ventricular response Abnormal ECG When compared with ECG of 01-Feb-2023 07:42, Atrial fibrillation has replaced Sinus rhythm Vent. rate has increased by 94 bpm Non-specific change in ST segment in Inferior leads Non-specific change in ST segment in Anterior leads Confirmed by Joshua Ballesteros ([id number]) on 01/25/2025 12:25:05 PM Referred By: Confirmed By: Joshua Ballesteros
[2025-01-25] MEDS ORDERED: PROPOFOL IV EMULSION 10 MG/ML 20 ML VIAL IV ONE (12:37)
[2025-01-25] MEDS ORDERED: LIDOCAINE 2% 2 ML VIAL/AMP(20MG/ML) INFIL ONE (12:37)
[2025-01-25 12:43] LABS: Estimated Average Glucose 117 mg/dl; Hemoglobin A1C 5.7 % (4.5-5.6)
--- NOTE | 2025-01-25 13:12 | History & Physical Bridge Note ---
Date of Service January 25, 2025 History & Physical Bridge Note I have examined the patient, reviewed the History & Physical and in the interval since the performance of the History & Physical I have noted the following changes of clinical significance: no changes noted
[2025-01-25] MEDS ORDERED: PHENYLEPHRINE HCL 10 MG/ML VIAL ONE (13:35)
--- NOTE | 2025-01-25 13:51 | Anesthesiology Progress Note ---
Date of Service January 25, 2025 Anesthesia Post Procedure Vital Signs Vital Signs: Temp Pulse Pulse Resp BP BP Pulse Ox 01/25/25 13:45 82 14 114/86 94 01/25/25 13:10 36.6 C 114 H 14 153/110 H 96 01/25/25 11:30 36.8 C 126 H 18 109/68 95 01/25/25 09:53 128 H 16 93/54 L 96 01/25/25 09:10 127 H 01/25/25 09:00 129 H 01/25/25 08:56 138 H 78/56 L 01/25/25 08:24 36.7 C 138 H 16 78/56 L 95 01/25/25 08:24 01/25/25 08:02 125 H 18 111/77 95 01/25/25 07:25 93 H 18 105/71 95 01/25/25 07:10 93 H 18 92/66 L 92 01/25/25 07:02 105 H 18 93/73 L 94 01/25/25 07:02 01/25/25 06:55 96 H 22 75/61 L 01/25/25 06:51 157 H 22 103/79 95 01/25/25 06:46 148 H 22 108/87 96 01/25/25 06:31 157 H 22 94/74 L 96 01/25/25 06:26 153 H 20 100/68 98 01/25/25 06:15 168 H 20 122/75 98 01/25/25 06:13 174 H 01/25/25 06:06 36.5 C 166 H 18 88/49 L 97 Pulse Ox O2 Del Method O2 Del Method 01/25/25 13:45 Room Air 01/25/25 13:10 Room Air 01/25/25 11:30 Room Air 01/25/25 09:53 Room Air 01/25/25 09:10 01/25/25 09:00 01/25/25 08:56 01/25/25 08:24 Room Air 01/25/25 08:24 95 Room Air 01/25/25 08:02 Room Air 01/25/25 07:25 Room Air 01/25/25 07:10 Room Air 01/25/25 07:02 Room Air 01/25/25 07:02 Room Air 01/25/25 06:55 01/25/25 06:51 01/25/25 06:46 01/25/25 06:31 01/25/25 06:26 01/25/25 06:15 01/25/25 06:13 01/25/25 06:06 Room Air Transfer of Care Handoff Completed per policy Notes Mental Status: alert / awake / arousable Patient Amnestic to Procedure: Yes Nausea / Vomiting: adequately controlled Pain: adequately controlled Airway Patency, RR, SpO2: stable & adequate BP & HR: stable & adequate Hydration State: stable & adequate Anesthetic Complications: no major complications apparent
--- NOTE | 2025-01-25 13:53 | Post Operative Brief Note ---
Cardiology Brief Post Op Date of Surgery January 25, 2025 Pre & Post Diagnosis Operation Date: 01/25/25 13:00 Procedure Preprocedure diagnosis: Rule out left atrial appendage thrombus, atrial fibrillation with rapid ventricular spots Post procedure diagnosis: No left atrial or left atrial appendage, successful conversion to sinus rhythm Transesophageal echocardiogram guided direct-current cardioversion procedure note: The patient's vital signs were monitored in the standard fashion. The procedure was performed in the postanesthesia care unit and the patient was sedated with the assistance of the anesthesia service. A focused, goal-directed transesophageal echocardiogram was performed for risk stratification. Mild to borderline moderate mitral valve regurgitation was present. The left atrial appendage was well-visualized and was without thrombus. The left atrium was without thrombus. The left ventricular ejection fraction was normal. The patient then underwent direct-current cardioversion receiving a single dose of 200 J of synchronized biphasic energy with successful conversion to sinus rhythm. The patient was found to have physiology suggestive of underlying sleep apnea noted during the procedure. Recommendations: Patient to be transferred back to the PCU. Recommend transition from heparin to Eliquis tonight at 2100 Patient has been intolerant of metoprolol in the past. Although I question if whether or not her debilitating fatigue may impart be related to the sleep apnea. The patient states however her fatigue was worse when she was on metoprolol and Eliquis. Instead of metoprolol or alternative beta-asher, will proceed with a trial of diltiazem as blood pressure allows. Digitizer Operator DO Assistant Aury Carney, RCS Estimated Blood Loss 0 Findings Consistent with Post-Op Diagnosis Anesthesia Type MAC Complications none
[2025-01-25 15:42] LABS: ANTI-Xa, UFH(UnfractionatedHep 0.31 IU/ml (0.3-0.7)
[2025-01-25] MEDS: dilTIAZem HCL 30 MG TAB PO SCH (16:17)
[2025-01-25] MEDS: BENZOCAINE/TETRACAIN/BUTAM 50 APPLN/5 GM CAN EXT ONE (16:17)
--- NOTE | 2025-01-25 18:02 | Communication Note ---
Date of Service: January 25, 2025 Patient was reassessed in PCU. She feels well. SR noted in the 70s having had diltiazem 30 mg at 1600. Plan -DC heparin at 2100 and start Eliquis -start diltiazem CD 120 mg daily am of 01/26. -Nocturnal pulse ox -Outpatient work up for REMBERTO
[2025-01-25] MEDS: APIXABAN 5 MG TABLET PO SCH (21:17)
[2025-01-26] MEDS: dilTIAZem HCL 120 MG CAPCR PO SCH (08:39)
[2025-01-26 08:58] LABS: Hematocrit (blood only) 41.2 % (37.0-47.0); Hemoglobin 13.3 g/dl (12.0-16.0); Mean Corpuscular Hemoglobin 27.9 pg (25.0-34.0); Mean Corpuscular Hgb Conc 32.3 g/dL (32.0-36.0); Mean Corpuscular Volume 86.4 fL (80.0-100.0); Mean Platelet Volume 11.6 fL (9.4-12.4); Platelet Count 252 K/uL (130-400); RDW Coefficient of Variation 13.7 % (11.5-14.5); RDW Standard Deviation 43.2 fL (36.4-46.3); Red Blood Count 4.77 M/uL (4.20-5.40); White Blood Count 5.85 K/ul (4.8-10.8)
[2025-01-26 09:13] LABS: Calcium 8.8 mg/dl (8.6-10.3); Creatinine Clr Calc Pharmacy 73.3 ml/min; Magnesium 1.9 mg/dl (1.7-2.4); Potassium 3.8 mmol/L (3.5-5.1)
--- NOTE | 2025-01-26 09:21 | Cardiology Progress Note ---
Date of Service January 26, 2025 Assessment & Plan (1) Atrial fibrillation with rapid ventricular response: Plan Assessment: 64 year old female with prior history of P. A-fib, presents with several hours of palpitations and feeling poorly, found to be in Atrial fibrilliation with RVR. Plan: 1. A. fib with RVR: -Known history, but has not been compliant with her medication in several months. Denies any known precipitating factors such as stress, new medications, or acute illness. -Rates remain elevated, minimal response with IV Lopressor, but limited as patient has been hypotensive since arrival with pressures 70's systolic. They are starting to improve. -Euvolemic on exam -discussed recommendation to pursue a cardioversion, but because patient has not been compliant on anticoagultion therapy, discussed the need to perform a trans-esophageal echocardiogram prior to proceeding with cardioversion to ensure no left atrial thrombus. patient and family member verbalize understanding and are in agreement to proceed. -Keep patient NPO and I will contact Dr. Alcala to make arrangements to proceed with CATHI and DCCV. Will need to obtain written consent. -Please keep heparin gtt on at this time. 01/26/2025: -Patient is stable from a cardiac perspective, preparing for discharge today. -Discussed importance of medication therapies. Continue Diltiazem and Eliquis (5mg PO BID) -Dr. Alcala had spoke with patient with regards to medication management vs consideration for EP evaluation and possible PVI ablation in future if appropriate. Will discuss with EP in OP setting -Will have our office contact patient to set up close hospital discharge follow up and contact patient. Case has been discussed with Dr. Alcala. Further recommendations regarding plan of care as per his assessment. I spent a total of 30 minutes on the date of service in preparation, delivery, documentation of the care provided to the patient excluding any time spent in the performance of separately billed services. BETZAIDA Uriostegui [facility] Cardiology [facility] Admission and Anticipated Discharge Date Admission Date: January 25, 2025 Supervising Physician Co-Signing Physician Notes Attending attestation: Case reviewed with the advanced practitioner. I have personally performed a history and physical examination on the patient. I have reviewed the advanced practitioner's documentation on the date of service referenced in note, and I agree with, and take responsibility for the plan of care. Stable for discharge on Eliquis 5 mg twice daily. Rationale with regards to importance of interrupted anticoagulation for the first 30 days after direct- current cardioversion reinforced at time my discussion with the patient. Proceed with diltiazem CD 120 mg daily. I please see telephone encounter in her outpatient [facility] chart with her request for a posthospital general cardiology follow-up visit and I also placed a referral to [facility] electrophysiology for discussion of further advice with regards to treatment for atrial fibrillation. Given perceived medication i ntolerance, she may be a good candidate for a PVI. I spent a total of 20 minutes coordinating, documenting, and providing care for this patient excluding time spent in the performance of separately billed services or time spent by another provider. Eleno Alcala, Subjective 01/26/2025: Patient seen and examined in follow up today. Feeling well from a cardiac perspective. offers no concerns. Labs, vitals, diagnostics, telemetry and documentation reviewed. Telemetry reviewed showing SB/SR rates 50's-60's. No recurrence of A-fib over night. Review of Systems Review of Systems: All systems reviewed & are unremarkable except as noted in HPI & below Physical Exam Constitutional: well developed and well nourished; no acute distress and not ill appearing Neck: normal visual inspection and trachea midline Cardiovascular: Rate/Rhythm: regular rate and regular rhythm Heart Sounds: normal S1 and normal S2; no murmur Vessels: dorsalis pedis pulses present; no JVD Extremities: no edema Skin: no rashes, warm and dry Psychiatric: A+Ox3, euthymic affect Results & Data Vital Signs (Past 12 Hours) Vital Signs Temp Pulse Pulse Pulse Resp BP Pulse Ox 01/26/25 08:24 55 L 01/26/25 08:24 01/26/25 07:47 36.6 C 67 16 113/55 L 95 01/26/25 03:10 54 L 01/26/25 02:49 36.8 C 55 L 18 99/62 L 96 01/25/25 23:06 69 01/25/25 23:02 112/73 01/25/25 22:49 76 01/25/25 22:41 36.6 C 69 17 92/57 L 96 01/25/25 21:49 62 Pulse Ox Pulse Ox O2 Del Method O2 Del Method O2 Del Method 01/26/25 08:24 03/28/25 08:24 95 Room Air 01/26/25 07:47 Room Air 01/26/25 03:10 94 Room Air 01/26/25 02:49 Room Air 01/25/25 23:06 95 Room Air 01/25/25 23:02 01/25/25 22:49 94 Room Air 01/25/25 22:41 Room Air 01/25/25 21:49 Laboratory Results Lipids 01/25/25 Range/Units 06:17 Triglycerides 91 (0-150) mg/dl Cholesterol 179 (0-200) mg/dl HDL Cholesterol 46 mg/dl Cholesterol/HDL Ratio 3.9 (0-5) CBC 01/26/25 Range/Units 08:34 WBC 5.85 (4.8-10.8) K/ul RBC 4.77 (4.20-5.40) M/uL Hgb 13.3 (12.0-16.0) g/dl Hct 41.2 (37.0-47.0) % Plt Count 252 (130-400) K/uL Comprehensive Metabolic Panel 01/26/25 Range/Units 08:34 Sodium 143 (136-145) mmol/L Potassium 3.8 (3.5-5.1) mmol/L Chloride 107 (98-107) mmol/L Carbon Dioxide 32 (21-32) mmol/L BUN 13 (6-23) mg/dl Creatinine 0.65 (0.6-1.2) mg/dl Glucose 130 H (70-99(Fasting)) mg/dl Calcium 8.8 (8.6-10.3) mg/dl Intake and Output 01/25/25 01/26/25 01/26/25 22:59 06:59 14:59 Intake Total 398.383 / 1553.383 Balance 398.383 / 1553.383 Intake: IV 158.383 / 1313.383 Heparin 21692 Unit/500 ml D5w 158.383 / 158.383 25,000 units In 500 ml @ 650 UNITS/HR 13 mls/hr IV .Q24H CHATO Rx#:[id number] Oral 240 / 240 Other: # Unmeasured Voids 1 1 Weight 61.9 kg Weight Measurement Method Built in [facility]
[2025-01-26 10:51] VITALS: BP 115/58; RESP 20; TEMP 98.1; O2SAT 96
[2025-01-26 12:06] VITALS: PULSE 72
--- NOTE | 2025-01-26 12:25 | Discharge Summary ---
Discharge Summary Date of Service January 26, 2025 Principal Dx & Hospital Course #1 = Principal Diagnosis (1) Palpitations: (2) Prediabetes: Plan 64 year old female with PMH significant for atrial fibrillation (diagnosed in December 2022 and required CATHI cardioversion) and osteoarthritis who was admitted on 01/25 for atrial fibrillation with RVR. Atrial fibrillation with RVR Patient had been noncompliant with her medications and had not taken Eliquis or metoprolol for awhile due to fatigue side effect Work up including CXR, CBC, CMP, magnesium, lipid profile, TSH all within normal limits EKG in the ED revealed A fib with RVR at 168bpm Received diltiazem and metoprolol IVP but ultimately needed cardioversion Cardioverted into NSR around 2pm on 01/25 and remained in NSR the rest of her admission Had hypotension while in Afib with BPs as low as 70s/50s but BPs normalized after cardioversion Cardiology recommends resume Eliquis and start Diltiazem in place of metoprolol Prediabetes Fasting glucose 147 and HgbA1C 5.7 Recommend outpatient follow up Patient seen in collaboration with Dr. Weaver. Please see addendum. Notes For Next Care Provider 64 year old female admitted to the hospital for Afib with RVR due to medication noncompliance. Underwent cardioversion and was discharged on Eliquis and Diltiazem. Labs demonstrated prediabetes. Recommend outpatient follow up. Medication Changes From Visit Eliquis 5mg PO bid Diltiazem HCl (Cardizem CD) 120mg PO daily Admission HPI Per Admitting Provider 64 year old female with PMH significant for atrial fibrillation (diagnosed in December 2022 and required CATHI cardioversion) and osteoarthritis who presented to the ED this morning for heart palpitations. She states that at around 0300 she woke up and felt heart palpitations. She is prescribed metoprolol and eliquis for her A fib but has not taken them for awhile because they make her extremely drowsy. She states that she can barely get through her day and then falls asleep in a chair as soon as she gets home from work. She does not take any medications on a regular basis. She feels as though she is in good health and denies any recent illness, cough, cold symptoms, fevers, chills, dizziness, lightheadedness, abdominal pain, N/V/D, myalgia, edema, calf tenderness. She denies chest pain. She had some SOB while walking into the ED from the car but denies SOB at rest. Upon arrival to the ED, she had an EKG that revealed atrial fibrillation at 168bpm. Her blood pressure was 88/49 on arrival. She had a CXR with no abnormalities and labs including a CBC, CMP, mag, and TSH that were largely unremarkable aside from a glucose of 147, mag 1.9, calcium 8.8. She received two NS boluses, IV mag and calcium repletion, and was given diltiazem 10mg IVP which decreased her heart rate for approximately one hour. Her blood pressures continued to be low with multiple readings 70s/50-60s. Admission Exam Per Admitting Provider VITALS: Reviewed. Tachycardic and hypotensive. GEN: Well-developed, female, NAD. PSYCH: Good Judgment. AOx3. Normal memory, mood, and affect. HEENT: Head NC/AT. Sclera white and conjunctiva pink. Nares without rhinorrhea. Nasal and oral mucosa pink. NECK: Supple, with no masses. CV: Irregular and tachycardic rate, no m/r/g. LUNGS: CTAB, no w/r/c. ABD: Soft, NT/ND, NBS, no masses or organomegaly. SKIN: Warm, well perfused. No skin rashes or abnormal lesions. MSK: No deformities, Normal gait. EXT: No clubbing, cyanosis, or edema. NEURO: Ambulating with no limitations. Normal muscle strength and tone. No focal deficits. Discharge Exam VITALS: Reviewed and VSS. GEN: Healthy appearing, well-developed, female, NAD. PSYCH: Good Judgment. AOx3. Normal memory, mood, and affect. HEENT: Head NC/AT. Sclera white and conjunctiva pink. Nares without rhinorrhea. Nasal and oral mucosa pink. NECK: Supple, with no masses. CV: RRR, no m/r/g. LUNGS: CTAB, no w/r/c. ABD: Soft, NT/ND, NBS, no masses or organomegaly. SKIN: Warm, well perfused. No skin rashes or abnormal lesions. MSK: No deformities, Normal gait. EXT: No clubbing, cyanosis, or edema. NEURO: Ambulating with no limitations. Normal muscle strength and tone. No focal deficits. Updated Medication List Medication Instructions Recorded Confirmed Type apixaban 5 mg tablet (Eliquis) 5 mg PO BID #60 tabs 01/26/25 Rx diltiazem HCl 120 mg 120 mg PO QAM #30 caps 01/26/25 Rx capsule,extended release 24 hr (Cardizem CD) Hospital Stay Data Consultations 01/25/25 07:30 ED Decision to Admit Stat 01/25/25 08:10 Consult Cardiology Routine 01/25/25 10:06 Consult Anesthesiology Routine Procedures Performed Operation Date: 01/25/25 13:00 Actual Procedures p Doppler Echo Limited/Follow Up - DO maryan Carney Echo Color Flow - DO maryan Carney Echo Transesophageal - DO maryan Carney Cardioversion - Eleno Alcala DO Diagnostic Imagining Performed Chest X-Ray 01/25/25 06:10 EXAM: XR chest 1V portable CLINICAL HISTORY: Dysrhythmia. TECHNIQUE: An X-ray image of the chest is obtained in AP projection. COMPARISON: 01/29/2023 X-ray. FINDINGS: Pulmonary Parenchyma: No evidence of consolidation, collapse, or focal opacities. No pulmonary nodules are identified. No evidence of pleural effusion or pleural thickening. Heart and Mediastinum: Apparently prominent cardiac shadow in the AP position. No mediastinal widening or masses. No hilar or mediastinal lymphadenopathy. Bony Thorax: Bony thorax appears intact without fractures or deformities. Soft Tissues: Soft tissues overlying the chest wall are unremarkable. IMPRESSION: 1. No acute pathology. 2. No time interval changes compared to the last study. Electronically signed by Mikhail Cabral 01-25-2025 07:03 AM Pending Results Patient Have Any Pending Studies at Discharge: No Discharge Instructions Given to Patient (Per Discharging Provider) You were admitted to the hospital for atrial fibrillation with a rapid rate. You were given IV medications but ultimately needed another cardioversion to break out of A fib. Since your cardioversion yesterday, you have been in normal sinus rhythm on your heart monitor. Cardiology was consulted and recommended you continue taking your Eliquis for anticoagulation and started you on Diltiazem (Cardizem) in place of your metoprolol to keep your heart rate controlled. You also had an echocardiogram which showed no changes (aside from you bring in A fib during the study) compared to your previous echo in 2022. MEDICATION CHANGES: Please take Eliquis 5mg by mouth twice a day and Diltiazem (Cardizem) 120mg by mouth once daily for your atrial fibrillation. Cardizem can cause swelling in the extremities and can lower your blood pressure. We recommend you check your blood pressures on a regular basis at home and let your PCP or [facility] [employer] know if you are having consistently low blood pressures or feeling dizzy or lightheaded. SUMMARY OF TEST RESULTS: See above PENDING TEST RESULTS: None RECOMMENDATIONS FOR FOLLOW-UP: Please follow up with your PCP on 01/31/25 after hospitalization. Discuss with them your new medication regimen for A fib. Please follow up with Cardiology (they are scheduling you an appointment) for continued management of your A fib. OTHER INSTRUCTIONS: Seek medical attention if you have: * temperature above 101 * chest pain or trouble breathing * abdominal pain, nausea, vomiting * diarrhea, dark stools or bloody stools * any unanswered questions or concerns Call 911 if symptoms are severe. It has been a pleasure taking care of you. Please take care of yourself. If you have any questions regarding your recent hospitalization please contact [facility] and [facility] @ [phone]. Diltiazem Patient Drug Information What is this drug used for? It is used to treat high blood pressure. It is used to treat some types of chest pain (angina). It is used to treat certain types of abnormal heartbeats. It may be given to you for other reasons. Talk with the doctor. What do I need to tell my doctor BEFORE I take this drug? If you are allergic to this drug; any part of this drug; or any other drugs, foods, or substances. Tell your doctor about the allergy and what signs you had. If you have certain types of abnormal heartbeats. There are many types of abnormal heartbeats with which this drug must not be used. Ask your doctor or pharmacist if you are not sure. If you have any of these health problems: Fluid in the lungs, low blood pressure, or recent heart attack. If you are taking any of these drugs: Ivabradine or rifampin.This is not a list of all drugs or health problems that interact with this drug.Tell your doctor and pharmacist about all of your drugs (prescription or OTC, natural products, vitamins) and health problems. You must check to make sure that it is safe for you to take this drug with all of your drugs and health problems. Do not start, stop, or change the dose of any drug without checking with your doctor. What are some things I need to know or do while I take this drug? Tell all of your health care providers that you take this drug. This includes your doctors, nurses, pharmacists, and dentists. Avoid driving and doing other tasks or actions that call for you to be alert until you see how this drug affects you. To lower the chance of feeling dizzy or passing out, rise slowly if you have been sitting or lying down. Be careful going up and down stairs. Check blood pressure and heart rate as the doctor has told you. You may need to have an ECG checked before starting this drug and while taking it. Talk with your doctor. If you are taking this drug and have high blood pressure, talk with your doctor before using OTC products that may raise blood pressure. These include cough or cold drugs, diet pills, stimulants, non-steroidal anti-inflammatory drugs (NSAIDs) like ibuprofen or naproxen, and some natural products or aids. If you drink grapefruit juice or eat grapefruit often, talk with your doctor. You may need to avoid drinking alcohol with some products. Talk with your doctor or pharmacist to see if you need to avoid drinking alcohol with this drug. If you are 65 or older, use this drug with care. You could have more side effects. Tell your doctor if you are , plan on getting , or are breast- feeding. You will need to talk about the benefits and risks to you and the baby. What are some side effects that I need to call my doctor about right away? WARNING/CAUTION:Even though it may be rare, some people may have very bad and sometimes deadly side effects when taking a drug. Tell your doctor or get medical help right away if you have any of the following signs or symptoms that may be related to a very bad side effect: Signs of an allergic reaction, like rash; hives; itching; red, swollen, blistered, or peeling skin with or without fever; wheezing; tightness in the chest or throat; trouble breathing, swallowing, or talking; unusual hoarseness; or swelling of the mouth, face, lips, tongue, or throat. Signs of liver problems like dark urine, tiredness, decreased appetite, upset stomach or stomach pain, light-colored stools, throwing up, or yellow skin or eyes. Severe dizziness or passing out. Slow heartbeat. An abnormal heartbeat that is new or worse. Heart failure has gotten worse in some people taking this drug. If you have heart failure, talk with your doctor. Call your doctor right away if you have shortness of breath, a big weight gain, or swelling in the arms or legs. Severe skin reactions have happened with this drug. These have included Pierre-Damion syndrome (SJS), toxic epidermal necrolysis (TEN), and other severe skin reactions. Sometimes these have been deadly. Get medical help right away if you have signs like red, swollen, blistered, or peeling skin; other skin irritation (with or without fever); red or irritated eyes; or sores in your mouth, throat, nose, or eyes. What are some other side effects of this drug? All drugs may cause side effects. However, many people have no side effects or only have minor side effects. Call your doctor or get medical help if any of these side effects or any other side effects bother you or do not go away: All oral products: Headache. Feeling dizzy, tired, or weak. How is this drug best taken? Use this drug as ordered by your doctor. Read all information given to you. Follow all instructions closely. All oral products: Take this drug at the same time of day. Keep taking this drug as you have been told by your doctor or other health care provider, even if you feel well. Regular-release tablets: This drug may be swallowed whole, crushed, or chewed. 30 mg tablets: Do not split or break tablet. Long-acting tablets and 12 hour capsules: Swallow whole. Do not chew, break, or crush. Long-acting capsules (24 hour): Some drugs may need to be taken with food or on an empty stomach. For some drugs it does not matter. Check with your pharmacist about how to take this drug. Some products may be opened and sprinkled on a spoonful of applesauce. Some products must be swallowed whole. Check with your pharmacist to see if you can open this product. What do I do if I miss a dose? All oral products: Take a missed dose as soon as you think about it. If it is close to the time for your next dose, skip the missed dose and go back to your normal time. Do not take 2 doses at the same time or extra doses. How do I store and/or throw out this drug? All oral products: Store at room temperature protected from light. Store in a dry place. Do not store in a bathroom. All products: Keep all drugs in a safe place. Keep all drugs out of the reach of children and pets. Throw away unused or drugs. Do not flush down a toilet or pour down a drain unless you are told to do so. Check with your pharmacist if you have questions about the best way to throw out drugs. There may be drug take-back programs in your area. Total Time Total Time Spent Total Time Spent (In Minutes): I spent a total of 35 minutes coordinating, documenting and providing care for this patient excluding time spent in the performance of separately billed servic es or time spent by another provider/QHP. Supervising Physician Co-Signing Physician Notes Patient seen and examined at bedside. Patient feels much better and ready to go home. Discussed with patient need for compliance with diltiazem therapy and Alexis, she appreciates this. Follow up with cardiology and PCP outpatient. I have seen and discussed the case with the collaborating advanced practitioner. I agree with the above H&P. I have reviewed and confirmed the patients medical history, the findings on physical examination, and the patients diagnosis and treatment plan with Daisy HUSTON and agree with the information documented. I spent a total of 20 minutes coordinating, documenting, and providing care for this patient excluding time spent in the performance of separately billed services. All of the aforementioned completed outside of collaborating with the assigned advanced practitioner for a full treatment plan. I have reviewed the advanced practitioner's documentation, and I agree with, and take responsibility for the plan of care
--- NOTE | 2025-01-26 14:04 | Electrocardiogram Report ---
Test Reason : Blood Pressure : */* mmHG Vent. Rate : 78 BPM Atrial Rate : 78 BPM P-R Int : 152 ms QRS Dur : 68 ms QT Int : 350 ms P-R-T Axes : 63 14 30 degrees QTcB Int : 399 ms Normal sinus rhythm Cannot rule out Anterior infarct , age undetermined Abnormal ECG When compared with ECG of 25-Jan-2025 06:12, Sinus rhythm has replaced Atrial fibrillation Vent. rate has decreased by 90 bpm Non-specific change in ST segment in Inferior leads Non-specific change in ST segment in Lateral leads Confirmed by Joshua Ballesteros ([id number]) on 01/26/2025 2:04:01 PM Referred By: REFERRED SELF Confirmed By: Joshua Ballesteros
== END 2025-01-26 12:50 | disposition home or self-care (01) | DRG 310 ==
LOC: ED 06:01 → 2S 07:40